=== PATIENT | female | born 1975 | race Caucasian/White ===

== ENCOUNTER 2019-07-10 13:24 | Emergency (ER) | payer OTHER, SELFPAY ==
[2019-07-10 13:47] VITALS: BP 126/85; PULSE 82; RESP 20; TEMP 36.6; O2SAT 100
--- NOTE | 2019-07-10 14:07 | ED.GENADULT ---
HPI - General Adult General Chief complaint: Unspecified Stated complaint: POS heart burn History of Present Illness HPI narrative: This a 44-year-old comes in complaining of having burning upper chest patient denies any nausea vomiting patient denies any shortness of breath or any chest pain. Patient denies any radiation or heart pain. Patient denies taking anything for her symptoms states that she is worried because the family has a history of lung cancer and notes this had something to do with lung cancer. Related Data Home Medications Medication Instructions Recorded Confirmed atorvastatin 10 mg tablet 10 mg PO DAILY 05/17/19 07/10/19 conjugated estrogens 0.625 mg/gram 0.625 mg VAGINAL DAILY 06/12/19 07/10/19 vaginal cream Allergies Allergy/AdvReac Type Severity Reaction Status Date / Time Sulfa (Sulfonamide Allergy Mild hives Verified 07/10/19 13:53 Antibiotics) Review of Systems Review of Systems: Narrative: CONSTITUTIONAL: Denies fever, chills, or sweats. EYES: Denies visual changes, redness, or discharge. ENT: Denies rhinorrhea, congestion, sore throat, or otalgia. CARDIOVASCULAR:Denies chest pain, palpitations, or edema. Burning of chest RESPIRATORY: Denies cough or dyspnea. GASTROINTESTINAL: Denies abdominal pain, nausea, vomiting, or diarrhea. GENITOURINARY: Denies dysuria or hematuria. SKIN:[Denies rash or itching. MUSCULOSKELETAL:Denies back pain, joint pain, or myalgia. NEUROLOGIC: Denies headache, numbness, or weakness. PSYCHIATRIC:Denies anxiety or depression PMFSH Social History Social History Smoking status: Former smoker Second hand tobacco smoke exposure: No Smoking end date: 05/06/98 Alcohol intake: current Comments At time as signature, I have reviewed and agree with nursing past medical, social, surgical and family history. Please see nursing chart for further information. There is no relevant family history pertinent to the presenting complaint. Exam Narrative: Exam Narrative: GENERAL:Well-appearing, well-nourished, and in no acute distress. HEAD:Normocephalic, atraumatic. EYES: PERRLA and EOMI. ENT: Nares clear, no rhinorrhea or epistaxis. Mucous membranes moist. NECK: Supple. CHEST: Clear to auscultation. No respiratory distress. Burning that goes up the chest to her throat HEART: Regular rate and rhythm. No murmur heard. Normal peripheral pulses. ABDOMEN: Soft, nontender, nondistended, normal active bowel sounds. EXTREMITIES: Normal range of motion. No edema. SKIN: Warm, dry, no rash. NEURO: No focal deficits. Alert and oriented x3. Discussed acid reflux as well as cancer in her risk and following up with her primary care provider Course Vital Signs Vital signs: Vital Signs Temperature 98 F 07/10/19 13:47 Pulse Rate 82 07/10/19 13:47 Respiratory Rate 20 07/10/19 13:47 Blood Pressure 126/85 07/10/19 13:47 Pulse Oximetry 100 07/10/19 13:47 Temperature 98 F 07/10/19 13:47 Pulse Rate 82 07/10/19 13:47 Respiratory Rate 20 07/10/19 13:47 Blood Pressure 126/85 07/10/19 13:47 Pulse Oximetry 100 07/10/19 13:47 Medical Decision Making Vital Signs Vital Signs: Vital Signs Temperature 98 F 07/10/19 13:47 Pulse Rate 82 07/10/19 13:47 Respiratory Rate 20 07/10/19 13:47 Blood Pressure 126/85 07/10/19 13:47 Pulse Oximetry 100 07/10/19 13:47 Temperature 98 F 07/10/19 13:47 Pulse Rate 82 07/10/19 13:47 Respiratory Rate 20 07/10/19 13:47 Blood Pressure 126/85 07/10/19 13:47 Pulse Oximetry 100 07/10/19 13:47 Discharge Plan Discharge Clinical Impression: Acid reflux disease Qualifiers: Esophagitis presence: esophagitis presence not specified Qualified Code(s): K21.9 - Gastro-esophageal reflux disease without esophagitis Patient Disposition: Home, Self-Care Condition: Stable Instructions: Antibiotic Form, Gastroesophageal Ref
== END 2019-07-10 14:13 | disposition home or self-care (01) ==
PROVIDERS: Emergency Provider Nurse Practitioner Family; PCP Family Medicine
DX: K21.9 Gastro-esophageal reflux disease without esophagitis (principal); Z87.891 Personal history of nicotine dependence
CPT/HCPCS: 99213; G0463

== ENCOUNTER → 2019-12-16 08:39 | Outpatient (CLI) | payer OTHER, SELFPAY ==
--- NOTE | ~2019-12-16 | MMUS_ITS ---
EXAMINATION: MM diagnostic annalisa BI w wong, US breast BI complete HISTORY: Left nipple inversion with milky discharge. TECHNIQUE: Additional 3-D tomosynthesis images of the breasts were performed and synthetic 2-D images were generated. CAD analysis was submitted and interpreted. High resolution bilateral breast ultraso und was performed. COMPARISON: Comparison to multiple prior studies sequentially, with oldest reviewed study dated 09/21. BREAST PARENCHYMAL COMPOSITION: The breasts are extremely dense, which lowers the sensitivity of mamm ography. FINDINGS: MAMMOGRAPHIC FINDINGS: There are no suspicious masses, calcifications or architectural distortion in either breast. There ar e benign breast calcifications. ULTRASOUND: Right breast ultrasound: Normal heterogeneous echotexture without focal solid or cystic mass. Left breast ultrasound: L1-2 o'clock, 4 cm from the nipple, there is an oval circumscribed hypoechoic mass measuring 8 mm wit h central echogenicity. There is mixed attenuation. No internal vascularity. At 3:00, 3 cm from the n ipple, there is an oval circumscribed hypoechoic mass measuring 8 mm with mixed posterior attenuation , no internal vascularity. At 3:00, 3 cm from from the nipple there is an oval circumscribed hypoecho ic mass measuring 4 x 5 x 2 mm without internal vascularity or posterior features. IMPRESSION: 1. Probable benign left breast masses. No evidence for malignancy in the right breast. 2. Recommend 6 month follow-up left breast ultrasound BI-RADS category 3, probably benign findings. Reviewed, dictated and finalized at location A. IMPRESSION: 1. Probable benign left breast masses. No evidence for malignancy in the right breast. 2. Recommend 6 month follow-up left breast ultrasound BI-RADS category 3, probably benign findings.
== END ==
PROVIDERS: PCP Physician Assistant Medical; Visit Provider Physician Assistant Medical
DX: N64.52 Nipple discharge (principal); N64.59 Other signs and symptoms in breast; R92.8 Other abnormal and inconclusive findings on diagnostic imaging of breast
CPT/HCPCS: 76641; 77062; 77066; G0279

== ENCOUNTER 2020-02-10 01:54 | Outpatient (CLI) | payer OTHER, SELFPAY ==
[2020-02-10 19:19] LABS: SARS-CoV-2 RNA PCR Negative
== END 2020-02-10 01:55 | disposition home or self-care (01) ==
LOC: ANHCOVIDDT 01:54
PROVIDERS: PCP Physician Assistant Medical; Visit Provider Internal Medicine Gastroenterology
DX: Z01.812 Encounter for preprocedural laboratory examination (principal); Z11.59 Encounter for screening for other viral diseases
CPT/HCPCS: 87635; C9803; U0003

== ENCOUNTER 2020-02-12 00:31 | Day surgery (SDC) | payer OTHER, SELFPAY ==
[2020-02-05 13:07] VITALS: BMI 25.4
[2020-02-12 10:38] VITALS: BP 145/98; PULSE 72; RESP 20; TEMP 36.2; O2SAT 100
[2020-02-12] MEDS: LACTATED RINGERS 1,000 ML 150 ML IV CONT (10:50)
--- NOTE | 2020-02-12 10:59 | WPDANESEPPF ---
Anes - Initial Pre Proc Eval Procedure: Operation Date: 02/12/20 11:30 Proposed Procedures p Esophagogastroduodenoscopy - Cleveland Macias MD Date/Time: 02/12/20 10:59 Surgeon: Cleveland Macias MD Pre Op Diagnosis: reflux Patient Data Age: 44 Gender: F Height: 5 ft 2.5 in Weight: 62.2 kg Last Vital Signs Temp 97.2 F L 02/12/20 10:38 Pulse 72 02/12/20 10:38 Resp 20 02/12/20 10:38 BP 145/98 H 02/12/20 10:38 Pulse Ox 100 02/12/20 10:38 Allergies Allergy/AdvReac Type Severity Reaction Status Date / Time Sulfa (Sulfonamide Allergy Mild hives Verified 02/12/20 10:34 Antibiotics) Home Medications Medication Instructions Recorded Confirmed Type conjugated estrogens 0.625 mg/gram 0.625 mg VAGINAL WEEKLY 06/12/19 02/05/20 History vaginal cream atorvastatin 10 mg tablet 10 mg PO DAILY #90 tablet 08/17/19 02/05/20 Rx amlodipine 5 mg tablet 5 mg PO DAILY #30 tablet 10/29/19 02/05/20 Rx [id number] carb-vit K 1 tablet PO DAILY 02/05/20 02/05/20 History [Women's Multivitamin] omeprazole 20 mg PO BID 02/05/20 02/05/20 History Patient hx anesthesia problems: none Family hx anesthesia problems: none PMFSH Past Medical History Medical History (Updated 02/12/20 @ 10:59 by Aidan Sloano MD) Essential (primary) hypertension GERD (gastroesophageal reflux disease) Mixed hyperlipidemia Family History Family History Father Hypertension Family history of elevated blood lipids Family history of cardiovascular disease Grandparent Hypertension Family history of lung cancer Family history of primary malignant neoplasm of liver Family history of malignant neoplasm of uterus Mother Hypertension Other Cerebrovascular accident Diabetes mellitus Family history of arthritis Family history of malignant neoplasm Family history of malignant neoplasm of bone Family history of malignant neoplasm of breast Family history of pancreatic cancer Social History Social History Smoking status: Never smoker Second hand tobacco smoke exposure: No Smoking end date: 05/06/98 Alcohol intake: current Drinks per week: 1 Substance use: never Living arrangements: with family Spiritual care concerns: No Anes - Eval Final PreProcedure Day of Procedure 02/12/20 10:59 Patient weight: normal Heart: regular rate and rhythm Lungs: clear to auscultation Airway: Mallampati scale class II Neurological: alert and oriented Last oral intake: >/= 8 hours ASA classification: II Emergent: no Anesthetic plan: proceed Anesthesia type and monitoring: general GIVS and standard monitoring Informed Consent: The patient's anesthetic plan and its attendant risks and benefits were discussed with the patient/family/POA. Questions were solicited and answers provided to the satisfaction of the patient/family/POA.
--- NOTE | 2020-02-12 11:19 | PM.HPGS ---
History of Present Illness History of Present Illness Consent: Risks, benefits, and alternatives have been discussed and questions answered. Patient agrees to proceed with procedure. Chief complaint: reflux Narrative: Tammy Wolfe is a 44 year old female with refractory reflux. She began having burning in the subxiphoid area in July. She was started on omeprazole and after few weeks tried to stop it but symptoms returned. Even now, if she skips 1 does she has symptoms later in the day. She has been taking it twice a day for the last several months. Denies dysphagia denies vomiting PMF Past Medical History Medical History (Updated 02/12/20 @ 11:20 by Cleveland Macias MD) Essential (primary) hypertension GERD (gastroesophageal reflux disease) (~07/2019) Mixed hyperlipidemia Family History Family History Father Hypertension Family history of elevated blood lipids Family history of cardiovascular disease Grandparent Hypertension Family history of lung cancer Family history of primary malignant neoplasm of liver Family history of malignant neoplasm of uterus Mother Hypertension Other Cerebrovascular accident Diabetes mellitus Family history of arthritis Family history of malignant neoplasm Family history of malignant neoplasm of bone Family history of malignant neoplasm of breast Family history of pancreatic cancer Social History Social History Smoking status: Never smoker Second hand tobacco smoke exposure: No Smoking end date: 05/06/98 Alcohol intake: current Drinks per week: 1 Substance use: never Living arrangements: with family Spiritual care concerns: No Meds Home Medications and Allergies Home Medications Medication Instructions Recorded Confirmed Type conjugated estrogens 0.625 mg/gram 0.625 mg VAGINAL WEEKLY 06/12/19 02/05/20 History vaginal cream atorvastatin 10 mg tablet 10 mg PO DAILY #90 tablet 08/17/19 02/05/20 Rx amlodipine 5 mg tablet 5 mg PO DAILY #30 tablet 10/29/19 02/05/20 Rx [id number]-ii-[id number]-FA-Ca carb-vit K 1 tablet PO DAILY 02/05/20 02/05/20 History [Women's Multivitamin] omeprazole 20 mg PO BID 02/05/20 02/05/20 History Allergies Allergy/AdvReac Type Severity Reaction Status Date / Time Sulfa (Sulfonamide Allergy Mild hives Verified 02/12/20 10:34 Antibiotics) Vital Signs Vital Signs - 24 hr 02/12/20 10:38 Temperature 36.2 C L Pulse Rate 72 Respiratory Rate 20 Blood Pressure 145/98 H Pulse Oximetry 100 Exam Const: General: alert Orientation/consciousness: patient oriented x3 Resp: Auscultation: clear to auscultation bilaterally Cardio: Rhythm: regular rhythm GI: GI Palp: Yes Soft to palpation and No Tenderness to palpation present (GI) Neuro: General: patient oriented x3 Assessment and Plan Assessment and plan (1) GERD (gastroesophageal reflux disease): Code(s): K21.9 - Gastro-esophageal reflux disease without esophagitis Status: Acute Assessment and Plan: EGD with possible biopsy or dilatation or cautery.
[2020-02-12 11:33] VITALS: BP 126/89; PULSE 68; RESP 15; O2SAT 100
[2020-02-12 11:42] VITALS: BP 131/88; PULSE 64; RESP 14; O2SAT 100
[2020-02-12 11:52] VITALS: BP 120/82; PULSE 64; RESP 13; O2SAT 100
== END 2020-02-12 12:05 | disposition home or self-care (01) ==
PROVIDERS: PCP Physician Assistant Medical; Visit Provider Internal Medicine Gastroenterology
PROC: 0DJ08ZZ Inspection of Upper Intestinal Tract, Via Natural or Artificial Opening Endoscopic (ICD-10-PCS; CPT 43235; principal; 2020-02-12 11:30)
DX: K21.9 Gastro-esophageal reflux disease without esophagitis (principal); E78.2 Mixed hyperlipidemia; I10 Essential (primary) hypertension
CPT/HCPCS: 43239; 87081; 88305; J2704; J7120

== ENCOUNTER 2020-02-21 15:02 | Emergency (ER) | payer OTHER, SELFPAY ==
--- NOTE | ~2020-02-21 | CT_ITS ---
EXAMINATION: CT thoracic lumbar wo con DATE: 02/21/2020 15:36 INDICATION: Fall. Mid and low back pain TECHNIQUE: Computed tomography (CT) of the head was performed without intravenous contrast. The mA wa s adjusted according to patient size. Iterative reconstruction technique was employed. Exam dose: 90 6.05 mGy-cm total exam DLP. COMPARISON: None FINDINGS: There is diffuse osteopenia. There is mild anterior wedge fracture deformity of T6 which is approximately 13% maximal loss of heig ht. There is mild anterior wedge compression fracture deformity of T8 with up to 25% maximal loss of heig ht of the anterior portion of vertebral body. There is severe degenerative disc disease at L5-S1. There is minimal anterolisthesis at L5-S1 due to degenerative disc disease at L5-S1. There is a transitional S1 vertebra. IMPRESSION: Mild anterior wedge compression fracture deformities of T6 and T8 Diffuse osteopenia Severe degenerative disc disease at L5-S1 Minimal anterolisthesis at L5-S1 due to degenerative apophyseal joints at L5-S1 Reviewed, dictated and finalized at [facility]. Reviewed, dictated and finalized at location A.
[2020-02-21 15:08] VITALS: BP 116/70; PULSE 102; RESP 18; TEMP 36.7; O2SAT 100
[2020-02-21] MEDS: MORPHINE SULFATE (*CRX) 4 MG/ML INJ IV PUSH (15:17)
--- NOTE | 2020-02-21 15:39 | ED.FALL ---
HPI - Fall General Chief Complaint: Fall Stated Complaint: fall History of Present Illness HPI Narrative: Patient is a 44-year-old female who presents ER with mid back pain. Patient was at the [facility]. She was standing there and in conversation when her feet went out from beneath her and she landed on the ground. She initially struck the upper area of her buttocks and felt pain shoot upwards towards her back and then radiate out. The majority of her pain is in the mid back. It is worse with twisting and bending. No numbness or tingling to the chest or abdomen. No numbness or tingling to lower extremities. Patient has normal strength in lower extremities. She did not strike her head or lose consciousness. Related Data Home Medications Medication Instructions Recorded Confirmed conjugated estrogens 0.625 mg/gram 0.625 mg VAGINAL WEEKLY 06/12/19 02/16/20 vaginal cream Women's Multivitamin 1 tablet PO DAILY 02/05/20 02/16/20 omeprazole 20 mg PO BID 02/05/20 02/16/20 Allergies Allergy/AdvReac Type Severity Reaction Status Date / Time Sulfa (Sulfonamide Allergy Mild hives Verified 02/21/20 15:15 Antibiotics) Review of Systems Cardiovascular: Cardiovascular: Denies chest pain and Denies radiating jaw, neck or arm pain Gastrointestinal: Gastrointestinal: Denies abdominal pain, Denies nausea and Denies vomiting Musculoskeletal: Musculoskeletal: Reports back pain and Denies muscle cramps Neurologic: Denies syncope, Denies focal weakness, Denies numbness and Denies weakness FOR[facility]LY [facility] Past Medical History Medical History (Updated 02/21/20 @ 17:11 by Ketnrell Lala MD) Essential (primary) hypertension GERD (gastroesophageal reflux disease) (~07/2019) Mixed hyperlipidemia Family History Family History Father Hypertension Family history of elevated blood lipids Family history of cardiovascular disease Grandparent Hypertension Family history of lung cancer Family history of primary malignant neoplasm of liver Family history of malignant neoplasm of uterus Mother Hypertension Other Cerebrovascular accident Diabetes mellitus Family history of arthritis Family history of malignant neoplasm Family history of malignant neoplasm of bone Family history of malignant neoplasm of breast Family history of pancreatic cancer Social History Social History Smoking status: Never smoker Second hand tobacco smoke exposure: No Smoking end date: 05/06/98 Alcohol intake: current Drinks per week: 1 Substance use: never Spiritual care concerns: No Exam Narrative: Exam Narrative: GENERAL: Anxious and uncomfortable-appearing, well-nourished, and in mild distress. HEAD: Normocephalic, atraumatic. CHEST: Clear to auscultation. No respiratory distress. HEART: Regular rate and rhythm. Normal peripheral pulses. ABDOMEN: Soft, nontender, nondistended. Back: Midline tenderness of the T12 area, no bruising or step-offs. No reproducible paraspinal tenderness along the T or L-spine. EXTREMITIES: Normal range of motion. No edema. Normal straight leg raise bilaterally. SKIN: Warm, dry, no rash. NEURO: No focal deficits. Alert and oriented x3. Course Course Emergency Course: Patient informed of results. She has been up and ambulatory to the bathroom. Discussed treatment plan. Needs follow-up with her PCP to discuss her osteopenia as well. Patient verbalized understanding. Discharge home. Vital Signs Vital signs: Vital Signs Temperature 98.1 F 02/21/20 15:08 Pulse Rate 102 H 02/21/20 15:08 Respiratory Rate 18 02/21/20 15:08 Blood Pressure 116/70 02/21/20 15:08 Pulse Oximetry 100 02/21/20 15:08 Temperature 98.1 F 02/21/20 15:08 Pulse Rate 102 H 02/21/20 15:08 Respiratory Rate 18 02/21/20 15:08 Blood Pressure 116/70 02/21/20 15:08 Pulse Oximetry 1
--- NOTE | 2020-02-21 16:40 | PC.NURSE ---
Pt ambulated to restroom with no difficulty.
== END 2020-02-21 17:57 | disposition home or self-care (01) ==
PROVIDERS: Emergency Provider Emergency Medicine; PCP Physician Assistant Medical
DX: S22.050A Wedge compression fracture of T5-T6 vertebra, initial encounter for closed fracture (principal); S22.060A Wedge compression fracture of T7-T8 vertebra, initial encounter for closed fracture; I10 Essential (primary) hypertension; K21.9 Gastro-esophageal reflux disease without esophagitis; E78.2 Mixed hyperlipidemia; M85.88 Other specified disorders of bone density and structure, other site; M51.37 Other intervertebral disc degeneration, lumbosacral region; V00.121A Fall from non-in-line roller-skates, initial encounter; Y93.51 Activity, roller skating (inline) and skateboarding
CPT/HCPCS: 72128; 72131; 96374; 99284; J2270

== ENCOUNTER → 2020-03-03 12:24 | Outpatient (CLI) | payer OTHER, SELFPAY ==
--- NOTE | ~2020-03-03 | DEXA_ITS ---
Bone Density Report Name: Tammy Wolfe Age: 45 Sex: Female Ethnicity: White Date of : 1975 Indication: postmenopausal; prior fracture; Referring Provider: Nataliia Landeros Study: Bone densitometry was performed. Exam Date: March 03, 2020 Accession number: [id number] Bone Density: Region BMD T-score Z-score Classification AP Spine (L1-L4) 0.603 -4.0 -3.5 Osteoporosis Femoral Neck (Left) 0.635 -1.9 -1.4 Osteopenia Total Hip (Left) 0.834 -0.9 -0.5 Normal Femoral Neck (Right) 0.669 -1.6 -1.1 Osteopenia Total Hip (Right) 0.829 -0.9 -0.6 Normal Total Hip Mean 0.832 -0.9 -0.6 Normal World Health Organization criteria for BMD impression classify patients as: Normal (T-score at or above -1.0), Osteopenia (T-score between -1.0 and -2.5), or Osteoporosis (T-score at or below -2.5). 10-year Fracture Risk: FRAX not reported because: Some T-score for Spine Total or Hip Total or Femoral Neck at or below -2.5 Prior hip or vertebral fracture Clinical Information Provided by Patient: Have had a previous hip or vertebral fracture Has had a low trauma fracture Has used the following medications: Calcium, MTV Patient maximum height was 62.5 Menopause Age: 44 No regular weight bearing exercise Onset of menses at age 11 Number of children 0 Impression: The patient has established osteoporosis, based on the Total Spine T-score and the existence of a prior fracture. The patient has risk factors, including: previous fracture. Discussion: HIGH RISK OF FRACTURE. BONE DENSITY IS UNDESIRABLY LOW AT ONE OR MORE SKELETAL SITES, CONSISTENT WITH POSTMENOPAUSAL OSTEOPOROSIS. This patient's lowest T-score, in a patient who has previously fractured, meets the World Health Organization's (WHO) criteria for severe osteoporosis. In untreated patients, the risk of osteoporotic fracture increases approximately two-fold for each 1.0 SD decrease in T-score. Low bone density is not the only risk factor for fracture; also consider factors such as patient's age, frailty or poor health, risk of falling, risk of injury, previous osteoporotic fracture, family history of osteoporosis, cigarette smoking, low body weight, etc. Not everyone with low bone mineral density has osteoporosis; osteomalacia and other metabolic bone disorders should also be considered. Patients who have osteoporosis should be evaluated for specific diseases and conditions (secondary causes) that may cause or contribute to bone loss. The [place] [employer]ocrinologists (AACE) and National Osteoporosis Foundation (NOF) recommend pharmacologic intervention for all postmenopausal women with a previous hip or vertebral fracture and a T-score in this range. The patient should follow a healthful lifestyle (good nutrition with adequate calcium and vitamin D, and appropriate
== END ==
PROVIDERS: PCP Physician Assistant Medical; Visit Provider Physician Assistant Medical
DX: S22.000A Wedge compression fracture of unspecified thoracic vertebra, initial encounter for closed fracture (principal); M81.0 Age-related osteoporosis without current pathological fracture; M16.0 Bilateral primary osteoarthritis of hip
CPT/HCPCS: 77080

== ENCOUNTER → 2020-07-06 09:33 | Outpatient (CLI) | payer OTHER, SELFPAY ==
--- NOTE | ~2020-07-06 | XR_ITS ---
EXAMINATION: XR hip BI 2V w AP pelvis EXAM DATE: 07/06/2020 09:56 INDICATION: Bilateral hip pain, intermittent for years. Fell in February. TECHNIQUE: Each hip imaged independently (separate right and also left hip) 'frog leg' and frontal p rojections for interpretation. Frontal projection pelvis. There is no prior study for comparison. FINDINGS: No radiographic evidence of hip avascular necrosis. There is mild to moderate symmetric bi lateral sacroiliac and mild bilateral hip primary osteoarthritis. Small benign right femoral head/nec k lesion with well-defined sclerotic margin. There are no acute fractures or dislocations identified. There is no subcutaneous gas. The soft tissue is unremarkable. There are no radiopaque foreign b odies. IMPRESSION: 1. Mild to moderate sacroiliac osteoarthritis. 2. Mild hip osteoarthritis. Reviewed, dictated and finalized at location A. 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
== END ==
PROVIDERS: Visit Provider Nurse Practitioner Family
DX: G89.29 Other chronic pain (principal); M25.551 Pain in right hip; M25.552 Pain in left hip; M89.49 Other hypertrophic osteoarthropathy, multiple sites
CPT/HCPCS: 73521

== ENCOUNTER → 2020-07-25 09:16 | Outpatient (CLI) | payer OTHER, SELFPAY ==
--- NOTE | ~2020-07-25 | US_ITS ---
EXAMINATION: US breast LT complete HISTORY: Six-month follow-up for probably benign left breast masses TECHNIQUE: Limited left breast ultrasound was performed. FINDINGS: There is a stable calcified mass at the 2:00 location 4 cm from the nipple corresponding to a benign finding on the prior mammogram. A stable 7 mm x 4 mm oval, circumscribed, parallel, hypoech oic mass with no posterior features or internal vascularity is present at the 3:00 location 3 cm from the nipple. IMPRESSION: Stable, probably benign left breast mass at the 3:00 location. Follow-up targeted left breast ultraso und in six months is recommended. BI-RADS category 3, probably benign findings. Reviewed, dictated and finalized at location A. IMPRESSION: Stable, probably benign left breast mass at the 3:00 location. Follow-up target ed left breast ultrasound in six months is recommended. BI-RADS category 3, probably benign findings.
== END ==
PROVIDERS: PCP Family Medicine; Visit Provider Physician Assistant Medical
DX: R92.8 Other abnormal and inconclusive findings on diagnostic imaging of breast (principal)
CPT/HCPCS: 76641

== ENCOUNTER 2021-08-25 21:15 | Emergency (ER) | payer OTHER, SELFPAY ==
[2021-08-25 21:19] VITALS: BP 150/104; PULSE 85; RESP 16; TEMP 36.3; O2SAT 100
[2021-08-25 21:41] LABS: Add Urine Microscopic? YES; Appearance Urine Cloudy (Clear); Bacteria Urine Trace /hpf; Bilirubin Urine Negative (Negative); Blood Urine 2+ (Negative); Color Urine Yellow (Yellow); Glucose Urine UA Negative (Negative); Ketones Urine Negative (Negative); Leukocyte Esterase Ur 3+ LEU/UL (Negative); Mucus Urine Rare /lpf; Nitrate Urine Negative (Negative); Protein Urine Negative (Negative); RBC Urine 21-50 /hpf (0-2); Specific Grav Ur 1.012 (1.001-1.035); Squamous Epithelial Cell Urine Rare /hpf (Few); Urobilinogen Urine Negative mg/dL (<2.0); WBC Urine 51-75 /hpf
--- NOTE | 2021-08-25 22:05 | ED.FEMALEGU ---
HPI - Female Genitourinary General Chief complaint: Urogenital-Female Stated complaint: UTI? Time Seen by Provider: 08/25/21 21:40 Source: patient Mode of arrival: ambulatory Limitations: no limitations History of Present Illness HPI Narrative: Patient is a 38-year-old female complaining of dysuria and increased urinary frequency, I have a UTI that started tonight. Patient denies any abdominal pain, back pain, nausea, vomiting, fever or chills. Related Data Home Medications Medication Instructions Recorded Confirmed Women's Multivitamin 1 tablet PO DAILY 02/05/20 08/10/21 omeprazole 20 mg capsule,delayed 20 mg PO BID 05/11/21 08/10/21 release teriparatide 20 mcg/dose (600 20 mcg SUBCUT DAILY 05/11/21 08/10/21 mcg/2.4 mL) subcutaneous pen injector Allergies Allergy/AdvReac Type Severity Reaction Status Date / Time Sulfa (Sulfonamide Allergy Mild hives Verified 08/25/21 21:28 Antibiotics) Review of Systems Review of Systems: Per HPI All systems reviewed & are unremarkable except as noted in HPI and below PMFSH Past Medical History Medical History Acute pain of both hips BMI 24.0-24.9, adult BMI 25.0-25.9,adult BMI 26.0-26.9,adult Essential (primary) hypertension GERD (gastroesophageal reflux disease) (~07/2019) Mixed hyperlipidemia Family History Family History Father Hypertension Family history of elevated blood lipids Family history of cardiovascular disease Heart disease Acute myocardial infarction H/O heart bypass surgery Grandparent Hypertension Family history of lung cancer Family history of primary malignant neoplasm of liver Family history of malignant neoplasm of uterus Mother Hypertension Kidney stones Sibling No problems noted. Other Cerebrovascular accident Diabetes mellitus Family history of arthritis Family history of malignant neoplasm Family history of malignant neoplasm of bone Family history of malignant neoplasm of breast Family history of pancreatic cancer Social History Social History Social History: recently diagnosed with Osteopenia. 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 [employer] Gender identity (if verbalized by the patient): Female Spiritual care concerns: No Agree to blood products: Yes Exam Const: General: cooperative, healthy appearing, comfortable, no acute distress, well developed, alert and awake; No confusion Orientation/consciousness: oriented to person, oriented to place, oriented to time, patient oriented x3 and No confusion Limitations: no limitations HENMT: Head: normal to inspection, normocephalic and atraumatic Ears: hearing grossly normal bilaterally, TM normal on the right and TM normal on the left General nose exam: Normal external nose present, Normal nares present and No nasal discharge present Face and sinus: normal facial exam Mouth: Yes Normal oral and palatal mucosa present, Yes lip normal, Yes tongue normal and Yes oropharynx normal Throat: posterior oropharynx normal, tonsils normal and uvula midline Eyes: General: appearance normal, both eyes and all related structures Pupils: Equal, round and reactive pupils present EOM: EOMs intact bilaterally Neck: Neck: normal visual inspection, full ROM, no lymphadenopathy and no meningeal signs Chest: Chest palpation & inspection: normal inspection of the chest Resp: Effort & Inspection: normal respiratory effort, able to speak in complete sentences, no respiratory distress and not tachypneic Auscultation: clear to auscultation bilaterally, no crackles, no rales, no rhonchi and no wheezes Cardio: Rate: regular rate Rhythm
== END 2021-08-25 22:19 | disposition home or self-care (01) ==
PROVIDERS: Nurse Practitioner Family; Emergency Provider Emergency Medicine; PCP Family Medicine
DX: N39.0 Urinary tract infection, site not specified (principal); I10 Essential (primary) hypertension; E78.2 Mixed hyperlipidemia; K21.9 Gastro-esophageal reflux disease without esophagitis; M85.80 Other specified disorders of bone density and structure, unspecified site
CPT/HCPCS: 81001; 87077; 87086; 87088; 87186; 99283

== ENCOUNTER 2021-10-11 22:44 | Emergency (ER) | payer OTHER, SELFPAY ==
[2021-10-11 22:49] VITALS: BP 155/97; PULSE 82; RESP 16; TEMP 36.6; O2SAT 99
--- NOTE | 2021-10-11 23:06 | ED.FEMALEGU ---
HPI - Female Genitourinary General Chief complaint: Urogenital-Female Stated complaint: dysuria Time Seen by Provider: 10/11/21 22:53 Source: patient Mode of arrival: ambulatory Limitations: no limitations History of Present Illness HPI Narrative: This is a 46-year-old female that presents to the emergency department for dysuria. Noted today. No associated symptoms. Denies fever, vomiting, flank pain, or hematuria. Related Data Home Medications Medication Instructions Recorded Confirmed womckcfw-gax-vkqf-FA-Ca carb-vit K 1 tablet PO DAILY 02/05/20 08/29/21 18 mg iron-400 mcg-500 mg tablet (Women's Multivitamin) omeprazole 20 mg capsule,delayed 20 mg PO BID 05/11/21 08/29/21 release teriparatide 20 mcg/dose (600 20 mcg subcut DAILY 05/11/21 08/29/21 mcg/2.4 mL) subcutaneous pen injector (Forteo) conjugated estrogens 0.625 mg/gram 0.625 mg vaginal WEEKLY 08/29/21 08/29/21 vaginal cream (Premarin) Allergies Allergy/AdvReac Type Severity Reaction Status Date / Time Sulfa (Sulfonamide Allergy Mild hives Verified 08/29/21 08:56 Antibiotics) Review of Systems Review of Systems: CONSTITUTIONAL: Denies fever GASTROINTESTINAL: Denies abdominal pain, nausea, vomiting GENITOURINARY: Reports dysuria. Denies hematuria. All systems reviewed & are unremarkable except as noted in HPI and below PMFSH Past Medical History Medical History Acute pain of both hips BMI 24.0-24.9, adult BMI 25.0-25.9,adult BMI 26.0-26.9,adult Essential (primary) hypertension GERD (gastroesophageal reflux disease) (~07/2019) Mixed hyperlipidemia Family History Family History Father Hypertension Family history of elevated blood lipids Family history of cardiovascular disease Heart disease Acute myocardial infarction H/O heart bypass surgery Grandparent Hypertension Family history of lung cancer Family history of primary malignant neoplasm of liver Family history of malignant neoplasm of uterus Mother Hypertension Kidney stones Sibling No problems noted. Other Cerebrovascular accident Diabetes mellitus Family history of arthritis Family history of malignant neoplasm Family history of malignant neoplasm of bone Family history of malignant neoplasm of breast Family history of pancreatic cancer Social History Social History Social History: recently diagnosed with Osteopenia. 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 HEAD: Normocephalic, atraumatic. EYES: EOMI. CHEST: Clear to auscultation. No respiratory distress. No wheezes rales or rhonchi HEART: Regular rate and rhythm. No murmur heard. Normal peripheral pulses. ABDOMEN: Soft, nontender, nondistended, normal active bowel sounds. No CVA tenderness EXTREMITIES: Normal range of motion. No edema. SKIN: Warm, dry, no rash. NEURO: No focal deficits. Alert and oriented x3. PSYCH: Normal mood and affect Course Vital Signs Vital signs: Vital Signs Temperature 97.9 F 10/11/21 22:49 Pulse Rate 82 10/11/21 22:49 Respiratory Rate 16 10/11/21 22:49 Blood Pressure 155/97 H 10/11/21 22:49 Pulse Oximetry 99 10/11/21 22:49 Oxygen Delivery Room Air 10/11/21 22:49 Temperature 97.9 F 10/11/21 22:49 Pulse Rate 82 10/11/21 22:49 Respiratory Rate 16 10/11/21 22:49 Blood Pressure 155/97 H 10/11/21 22:49 Pulse Oximetry 99 10/11/21 22:49 Oxygen Delive
[2021-10-11 23:25] LABS: Appearance Urine Clear (Clear); Bilirubin Urine Negative (Negative); Color Urine Yellow (Yellow); Glucose Urine UA Negative (Negative); Ketones Urine Negative (Negative); Leukocyte Esterase Ur 3+ LEU/UL (Negative); Nitrate Urine Negative (Negative); Protein Urine Negative (Negative); Urobilinogen Urine 0.2 mg/dL (<2.0)
[2021-10-11 23:39] LABS: Mucus Urine Rare /lpf; RBC Urine 0-2 /hpf (0-2); Squamous Epithelial Cell Urine Rare /hpf (Few); WBC Urine 21-30 /hpf
[2021-10-11 23:40] LABS: Add Urine Microscopic? YES; Blood Urine Trace (Negative)
[2021-10-11] MEDS: NITROFURANTOIN MONOHYD MACROCR 100 MG CAP PO (23:51)
== END 2021-10-11 23:54 | disposition home or self-care (01) ==
PROVIDERS: Physician Assistant; Emergency Provider Emergency Medicine; PCP Family Medicine
DX: N39.0 Urinary tract infection, site not specified (principal); I10 Essential (primary) hypertension; E78.2 Mixed hyperlipidemia; K21.9 Gastro-esophageal reflux disease without esophagitis
CPT/HCPCS: 81001; 87077; 87086; 87186; 99283; A9270

== ENCOUNTER → 2022-10-30 07:38 | Outpatient (CLI) | payer OTHER, SELFPAY ==
--- NOTE | ~2022-10-30 | XR_ITS ---
EXAMINATION: XR clavicle LT INDICATION: Left shoulder pain TECHNIQUE: Two views of the left clavicle are obtained. COMPARISON: None available FINDINGS: No fracture, dislocation, or subluxation. The bones, soft tissues, and joint spaces are nor mal. IMPRESSION: 1. No acute osseous abnormality. Reviewed, dictated and finalized at location D.
--- NOTE | ~2022-10-30 | XR_ITS ---
Left Shoulder Technique: AP and axillary views were obtained. Clinical History: Pain Findings: No fracture or dislocation is seen. Osseous alignment is anatomic. The glenohumeral and acr omioclavicular joint spaces are preserved. Soft tissues are unremarkable. Impression: Unremarkable left shoulder radiographs. Reviewed, dictated and finalized at [facility]. Impression: Unremarkable left shoulder radiographs.
== END ==
PROVIDERS: PCP Family Medicine; Visit Provider Nurse Practitioner Family
DX: M25.512 Pain in left shoulder (principal); M89.8X1 Other specified disorders of bone, shoulder
CPT/HCPCS: 73000; 73030

== ENCOUNTER → 2022-12-28 15:17 | Outpatient (CLI) | payer OTHER, SELFPAY ==
--- NOTE | ~2022-12-28 | MR_ITS ---
EXAMINATION: MR shoulder LT wo con DATE: 12/28/2022 16:01 INDICATION: Left shoulder pain TECHNIQUE: Magnetic resonance imaging (MRI) of the left shoulder was performed without intravenous co ntrast. Sequences included axial PD-weighted FS FSE, coronal oblique PD-weighted FS FSE, coronal obli que T2-weighted FS FSE, sagittal PD-weighted FS FSE, and sagittal T1-weighted SE. COMPARISON: None. FINDINGS: Coracoacromial arch: The acromion undersurface is curved in morphology (type II). The coracoacromial ligament is normal. M inimal acromioclavicular osteoarthritis. Rotator cuff: The supraspinatus, infraspinatus and teres minor tendons are normal. Mild subscapularis tendinopathy without discrete tear. Normal rotator cuff muscle bulk and signal. Biceps tendon, glenoid labrum and glenohumeral cartilage: Long head of the biceps tendon is normal. Glenoid labrum is normal with normal sulcus at the anterosu perior glenoid. Glenohumeral cartilage is normal. Fluid: Physiologic amount of fluid in the glenohumeral joint and biceps tendon sheath. No loose osteochondr al bodies. No abnormal fluid in the subacromial/subdeltoid bursa to suggest bursitis. Bones: Normal marrow signal with no edema, fracture or abnormal marrow replacing process. IMPRESSION: 1. Mild subscapularis tendinopathy without tear. Reviewed, dictated and finalized at location A.
== END ==
PROVIDERS: PCP Family Medicine; Visit Provider Nurse Practitioner Family
DX: M89.8X1 Other specified disorders of bone, shoulder (principal); M25.512 Pain in left shoulder; M77.8 Other enthesopathies, not elsewhere classified
CPT/HCPCS: 73221

== ENCOUNTER 2023-09-07 09:25 | Emergency (ER) | payer OTHER, SELFPAY ==
--- NOTE | 2023-09-07 09:37 | ED.URI ---
HPI - URI/Sore Throat General Chief Complaint: Upper Respiratory Infection Stated Complaint: SORE THROAT/FEVER Time Seen by Provider: 09/07/23 09:42 Source: patient and RN notes reviewed Mode of arrival: ambulatory Limitations: no limitations History of Present Illness HPI Narrative: 48-year-old female presents with concern for sore throat, cough, low-grade temperature for 3 days. She reports she has been taking Mucinex and throat lozenges. She denies headache, stomachache, rash. Reports mild nasal congestion and rhinorrhea MD elicited complaint: sore throat Related Data Home Medications Medication Instructions Recorded Confirmed usmaxxfw-wgq-fdxk-FA-Ca carb-vit K 1 tablet PO DAILY 02/05/20 09/07/23 18 mg iron-400 mcg-500 mg tablet (Women's Multivitamin) teriparatide 20 mcg/dose (600 20 mcg subcut DAILY 05/11/21 09/07/23 mcg/2.4 mL) subcutaneous pen injector (Forteo) conjugated estrogens 0.625 mg/gram 0.625 mg vaginal WEEKLY 08/29/21 09/07/23 vaginal cream (Premarin) Allergies Allergy/AdvReac Type Severity Reaction Status Date / Time Sulfa (Sulfonamide Allergy Mild hives Verified 09/07/23 09:30 Antibiotics) Review of Systems Review of Systems: CONSTITUTIONAL: Denies malaise, chills, sweats. Reports low-grade fever. EYES: Denies visual changes, redness, or discharge. ENT: Reports rhinorrhea, congestion, and sore throat. CARDIOVASCULAR: Denies chest pain, palpitations, or edema. RESPIRATORY: Reports cough. Denies dyspnea. GASTROINTESTINAL: Denies abdominal pain, nausea, vomiting, diarrhea SKIN: Denies rash or itching. MUSCULOSKELETAL: Denies myalgia. NEUROLOGIC: Denies headache. All systems reviewed & are unremarkable except as noted in HPI and below [facility] Past Medical History Medical History Acute pain of both hips BMI 24.0-24.9, adult BMI 25.0-25.9,adult BMI 26.0-26.9,adult BMI 27.0-27.9,adult BMI 28.0-28.9,adult Essential (primary) hypertension GERD (gastroesophageal reflux disease) (~07/2019) Mixed hyperlipidemia Surgical History Surgical History History of lumpectomy History of myomectomy Hx of laparoscopy Family History Family History Father Hypertension Family history of elevated blood lipids Family history of cardiovascular disease Heart disease Acute myocardial infarction H/O heart bypass surgery Grandparent Hypertension Family history of lung cancer Family history of primary malignant neoplasm of liver Family history of malignant neoplasm of uterus Mother Hypertension Kidney stones Sibling Tobacco abuse Hypertension Other Cerebrovascular accident Diabetes mellitus Family history of arthritis Family history of malignant neoplasm Family history of malignant neoplasm of bone Family history of malignant neoplasm of breast Family history of pancreatic cancer Social History Social History (Updated 06/21/23 @ 09:49 by NIKKY Garcia) Social History: recently diagnosed with Osteopenia. 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
[2023-09-07 09:38] VITALS: BP 127/96; PULSE 93; RESP 16; TEMP 37; O2SAT 99
== END 2023-09-07 09:56 | disposition home or self-care (01) ==
PROVIDERS: Emergency Provider Nurse Practitioner; PCP Family Medicine
DX: J06.9 Acute upper respiratory infection, unspecified (principal); I10 Essential (primary) hypertension; K21.9 Gastro-esophageal reflux disease without esophagitis; E78.2 Mixed hyperlipidemia
CPT/HCPCS: 87081; 87880; 99213; G0463

== ENCOUNTER 2023-10-23 07:54 | Outpatient (CLI) | payer OTHER, SELFPAY ==
--- NOTE | ~2023-10-23 | MMUS_ITS ---
EXAMINATION: MM diagnostic annalisa BI w wong, US breast BI complete HISTORY: Palpable left breast abnormality. TECHNIQUE: Additional 3-D tomosynthesis images of the breasts were performed and synthetic 2-D images were generated. CAD analysis was submitted and interpreted. High resolution bilateral complete breas t ultrasound was performed. COMPARISON: Comparison to multiple prior studies sequentially, with oldest reviewed study dated 06/2015. BREAST PARENCHYMAL COMPOSITION: Dense: The breasts are extremely dense, which lowers the sensitivity of mammography. FINDINGS: MAMMOGRAPHIC FINDINGS: The breasts are stable. There are coarse calcifications of the left breast. No discrete masses, archi tectural distortion or suspicious calcifications. ULTRASOUND: Complete bilateral US of all 4 quadrants of the breasts and retroareolar region was reviewed. Right breast: Normal heterogeneous echotexture without focal solid or cystic mass. Left breast: At 2:00, 4 cm from the nipple there is an irregular hypoechoic mass with posterior shado wing and coarse calcifications measuring up to 1 cm. No internal vascularity. At 3:00, 3 cm from the nipple there is a hypoechoic oval slightly irregular shaped 8mm mass without internal vascularity. Th ere is posterior shadowing. IMPRESSION: 1. Abnormal left breast masses located at 2:00, 4 cm from the nipple and 3:00, 3 cm from the nipple. 2. Ultrasound-guided left breast biopsies recommended. BI-RADS category 4, suspicious findings. Reviewed, dictated and finalized at location B. IMPRESSION: 1. Abnormal left breast masses located at 2:00, 4 cm from the nipple and 3:00, 3 cm from the nipple. 2. Ultrasound-guided left breast biopsies recommended. BI-RADS category 4, suspicious findings.
== END 2023-10-23 07:55 ==
LOC: MICIMG 07:55
PROVIDERS: Visit Provider Nurse Practitioner Family
DX: R92.8 Other abnormal and inconclusive findings on diagnostic imaging of breast (principal); N63.20 Unspecified lump in the left breast, unspecified quadrant
CPT/HCPCS: 76641; 77062; 77066; G0279

== ENCOUNTER 2023-12-16 07:58 | Outpatient (CLI) | payer OTHER, SELFPAY ==
--- NOTE | ~2023-12-16 | MMUS_ITS ---
MM post biopsy diagnostic LT, US breast biopsy LT w image EXAMINATION: US GUIDED NEEDLE BIOPSY WITH VACUUM ASSISTANCE DATE: 12/16/2023 10:00 CDT INDICATION: Left breast mass seen on previous examination Ultrasound-guided core biopsy is requested to evaluate for malignancy. BREAST PARENCHYMAL COMPOSITION: Dense: The breasts are heterogeneously dense, which may obscure small masses TECHNIQUE AND FINDINGS: The risks and potential benefits of the procedure were discussed with the patient, and written inform ed consent was obtained. After sterile preparation of the left breast, 1% lidocaine was utilized for local anesthesia. 1% lidocaine with epinephrine was used for deep anesthesia. The mass identified at 2:00, 4 cm from the nipple on prior examination demonstrates coarse central ca lcification. This corresponds to a benign calcified mass in the left breast, likely representing fat necrosis from previous benign biopsy. Six-month follow-up examination of this mass recommended. A 10G vacuum-assisted biopsy gun needle was advanced through to the outer edge of the region of interest f rom a lateral approach utilizing sonographic guidance. A total of 5 tissue core samples were obtaine d through the lesion. An Inrad tissue marker clip was then placed at the biopsy site. Hemostasis was achieved. The patient tolerated procedure well and there was no evidence of immediate complication. The patien t was given verbal instructions partly is from the department. Left breast mammograms to document ti ssue marker clip placement. The tissue samples were submitted to surgical pathology for histologic an alysis. IMPRESSION: 1. Successful ultrasound-guided vacuum-assisted biopsy of left breast mass with post procedure mammo gram for marker placement. Please refer to pathology report for histologic analysis. 2: Breast mass, 4 cm from the nipple is likely benign fat necrosis secondary to prior biopsy. Six-mon follow-up Limited left breast ultrasound recommended. Reviewed, dictated and finalized at location B. IMPRESSION: 1. Successful ultrasound-guided vacuum-assisted biopsy of left breast mass wit h post procedure mammogram for marker placement. Please refer to pathology repo rt for histologic analysis. 2: Breast mass, 4 cm from the nipple is likely benign fat necrosis secondary to prior biopsy. Six-month follow-up Limited left breast ultrasound recommended.
== END 2023-12-16 07:59 | disposition home or self-care (01) ==
PROVIDERS: PCP Family Medicine; Visit Provider Nurse Practitioner Family
DX: D24.2 Benign neoplasm of left breast (principal); R92.8 Other abnormal and inconclusive findings on diagnostic imaging of breast
CPT/HCPCS: 19083; 77065; 88305; A4648

== ENCOUNTER 2024-03-20 04:42 | Day surgery (SDC) | payer OTHER, SELFPAY ==
[2024-03-10 16:16] VITALS: BMI 30.2
[2024-03-20 08:48] VITALS: BP 188/85; PULSE 79; RESP 18; TEMP 36.1; O2SAT 100
[2024-03-20] MEDS: LACTATED RINGERS 1,000 ML 150 ML IV CONT (09:00)
--- NOTE | 2024-03-20 09:25 | WPDANESEPPF ---
Anes - Initial Pre Proc Eval Procedure: Operation Date: 03/20/24 10:00 Proposed Procedures p Screening Colonoscopy - Xavi Lo MD Date/Time: 03/20/24 09:25 Surgeon: Xavi Lo MD Pre Op Diagnosis: screening colon Patient Data Age: 49 Gender: F Height: 1.57 m Weight: 72.6 kg Last Vital Signs Temp 97 F L 03/20/24 08:48 Pulse 79 03/20/24 08:48 Resp 18 03/20/24 08:48 BP 188/85 H 03/20/24 08:48 Pulse Ox 100 03/20/24 08:48 O2 Del Method Room Air 03/20/24 08:48 Allergies Allergy/AdvReac Type Severity Reaction Status Date / Time Sulfa (Sulfonamide Allergy Mild hives Verified 03/20/24 08:46 Antibiotics) Home Medications Medication Instructions Recorded Confirmed Type iqqyhjda-wlw-qzcg-FA-Ca carb-vit K 1 tablet PO DAILY 02/05/20 03/20/24 History 18 mg iron-400 mcg-500 mg tablet (Women's Multivitamin) amlodipine 5 mg tablet See Rx Instructions .Route 08/28/23 03/20/24 Rx .COMPLEX #90 tabs atorvastatin 10 mg tablet See Rx Instructions .Route 02/28/24 03/20/24 Rx .COMPLEX #90 tabs epinephrine 0.3 mg/0.3 mL 0.3 mg IM ONCE PRN Allergic 03/20/24 03/20/24 History injection, auto-injector (EpiPen Reaction 2-Terry) Patient hx anesthesia problems: none Family hx anesthesia problems: none Results Review: All pre-operative results and documents have been reviewed as part of the pre-operative evaluation. [facility] Past Medical History Medical History Abdominal discomfort Acute hemorrhoid Acute pain of both hips Burning with urination Compression fracture of body of thoracic vertebra Essential (primary) hypertension Excessive cerumen in ear canal Frequent headaches GERD (gastroesophageal reflux disease) (~07/2019) Mixed hyperlipidemia Normal urinalysis Osteopenia determined by x-ray Pain of left clavicle Sensation of plugged ear on left side Skin lesion Snoring Suprapubic pain UTI (urinary tract infection) Surgical History Surgical History History of lumpectomy History of myomectomy Hx of laparoscopy Family History Family History (Reviewed 03/20/24 @ 09: by Liu Adams DO) Father Hypertension Family history of elevated blood lipids Family history of cardiovascular disease Heart disease Acute myocardial infarction H/O heart bypass surgery Grandparent Hypertension Family history of lung cancer Family history of primary malignant neoplasm of liver Family history of malignant neoplasm of uterus Mother Hypertension Kidney stones Sibling Tobacco abuse Hypertension Other Cerebrovascular accident Diabetes mellitus Family history of arthritis Family history of malignant neoplasm Family history of malignant neoplasm of bone Family history of malignant neoplasm of breast Family history of pancreatic cancer Social History Social History (Reviewed 03/20/24 @ 09: by Liu Adams DO) Social History: recently diagnosed with Osteopenia. 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 HTN, hyperlipidemia, recent cardiology visit reviewed w nml findings. Informed Consent: The patient's anesthetic plan and its attendant risks and benefits were discussed with the patient/family/POA. Questions were solicited and answers provided to the satisfaction of the patient/family/POA.
--- NOTE | 2024-03-20 09:26 | PM.HPGS ---
History of Present Illness History of Present Illness Consent: Risks, benefits, and alternatives have been discussed and questions answered. Patient agrees to proceed with procedure. Chief complaint: screening colon Narrative: Tammy Wolfe is a 49 year old female here for first screening colonoscopy Review of Systems Review of Systems: All systems reviewed & are unremarkable except as noted in HPI and below PMFSH Past Medical History Medical History Abdominal discomfort Acute hemorrhoid Acute pain of both hips Burning with urination Compression fracture of body of thoracic vertebra Essential (primary) hypertension Excessive cerumen in ear canal Frequent headaches GERD (gastroesophageal reflux disease) (~07/2019) Mixed hyperlipidemia Normal urinalysis Osteopenia determined by x-ray Pain of left clavicle Sensation of plugged ear on left side Skin lesion Snoring Suprapubic pain UTI (urinary tract infection) Surgical History Surgical History History of lumpectomy History of myomectomy Hx of laparoscopy Family History Family History Father Hypertension Family history of elevated blood lipids Family history of cardiovascular disease Heart disease Acute myocardial infarction H/O heart bypass surgery Grandparent Hypertension Family history of lung cancer Family history of primary malignant neoplasm of liver Family history of malignant neoplasm of uterus Mother Hypertension Kidney stones Sibling Tobacco abuse Hypertension Other Cerebrovascular accident Diabetes mellitus Family history of arthritis Family history of malignant neoplasm Family history of malignant neoplasm of bone Family history of malignant neoplasm of breast Family history of pancreatic cancer Social History Social History Social History: recently diagnosed with Osteopenia. 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 Gender identity (if verbalized by the patient): Female Spiritual care concerns: No Agree to blood products: Yes Meds Home Medications and Allergies Home Medications Medication Instructions Recorded Confirmed Type julrpzuy-epx-kneh-[id number]-Ca carb-vit K 1 tablet PO DAILY 02/05/20 03/20/24 History 18 mg iron-400 mcg-500 mg tablet (Women's Multivitamin) amlodipine 5 mg tablet See Rx Instructions .Route 08/28/23 03/20/24 Rx .COMPLEX #90 tabs atorvastatin 10 mg tablet See Rx Instructions .Route 02/28/24 03/20/24 Rx .COMPLEX #90 tabs epinephrine 0.3 mg/0.3 mL 0.3 mg IM ONCE PRN Allergic 03/20/24 03/20/24 History injection, auto-injector (EpiPen Reaction 2-Terry) Allergies Allergy/AdvReac Type Severity Reaction Status Date / Time Sulfa (Sulfonamide Allergy Mild hives Verified 03/20/24 08:46 Antibiotics) Vital Signs Vital Signs - 24 hr 03/20/24 08:48 Temperature 97 F L Pulse Rate 79 Respiratory Rate 18 Blood Pressure 188/85 H Pulse Oximetry 100 Oxygen Delivery Room Air Exam Const: General: comfortable and no acute distress HENMT: Face/Nose/Sinus: Normal nares present Eyes: General: appearance normal, both eyes and all related structures Neck: Neck: no JVD Resp: Auscultation: clear to auscultation bilaterally Cardio: Rate: regular rate Rhythm: regular rhythm GI: Inspection: non-distended GI Palp: Yes Soft to palpation Skin: General skin exam: normal color Neuro: General: gait normal Speech: normal speech Extrem: General: normal to inspection Psych: Mental Status: mental status grossly normal Assessment and Plan Assessment and plan (1) Screening for colon cancer: Code(s): Z12.11 - Encounter for screening for malignant neoplasm of colon Status: Acute Assessment and Plan: colonoscopy
[2024-03-20 09:48] VITALS: BP 102/67; PULSE 66; RESP 16; O2SAT 96
[2024-03-20 09:58] VITALS: BP 111/78; PULSE 65; RESP 15; O2SAT 98
[2024-03-20 10:08] VITALS: BP 112/86; PULSE 63; RESP 19; O2SAT 100
== END 2024-03-20 10:21 | disposition home or self-care (01) ==
PROVIDERS: PCP Family Medicine; Referring Provider Physician Assistant Medical; Visit Provider Internal Medicine Gastroenterology
PROC: 0DJD8ZZ Inspection of Lower Intestinal Tract, Via Natural or Artificial Opening Endoscopic (ICD-10-PCS; CPT 45378; principal; 2024-03-20 10:00)
DX: Z12.11 Encounter for screening for malignant neoplasm of colon (principal); K63.5 Polyp of colon; K64.8 Other hemorrhoids; I10 Essential (primary) hypertension; E78.5 Hyperlipidemia, unspecified
CPT/HCPCS: 45385; 88305; J2003; J2704; J7120

== ENCOUNTER 2024-06-25 07:46 | Outpatient (CLI) | payer OTHER, SELFPAY ==
--- NOTE | ~2024-06-25 | MMUS_ITS ---
EXAMINATION: MM diagnostic annalisa BI w wong, US breast LT limited HISTORY: Left breast lump. TECHNIQUE: Additional 3-D tomosynthesis images of the breasts were performed and synthetic 2-D images were generated. CAD analysis was submitted and interpreted. High resolution Limited left breast ultr asound was performed. COMPARISON: Comparison to multiple prior studies sequentially, with oldest reviewed study dated 06/2015. BREAST PARENCHYMAL COMPOSITION: Dense: The breasts are heterogeneously dense, which may obscure small masses FINDINGS: MAMMOGRAPHIC FINDINGS: The breasts are stable. No new masses, calcifications or architectural distortion in either breast to suggest malignancy. ULTRASOUND: Limited left breast ultrasound: At 2:00, 4 cm from the nipple there is an oval parallel oriented hypo echoic mass containing internal calcifications and mixed posterior attenuation. There is parallel lamine entation. Mass measures 9 x 9 x 5 mm compared with 10 x 7 x 5 mm on prior examination dated 10/23/2023 . This was previously biopsy-proven benign fibroadenoma. IMPRESSION: 1. Stable left breast mass at 2:00, 4 cm from the nipple, previously biopsy-proven benign fibroadenom a. No evidence for malignancy in either breast. 2. Routine yearly screening mammogram and regular clinical breast examination are recommended. BI-RADS Category 2: Benign finding(s). Reviewed, dictated and finalized at location B. TRICAL INSTALLATION SUPERVISOR IMPRESSION: 1. Stable left breast mass at 2:00, 4 cm from the nipple, previously biopsy-pro michelle benign fibroadenoma. No evidence for malignancy in either breast. 2. Routine yearly screening mammogram and regular clinical breast examination a re recommended. BI-RADS Category 2: Benign finding(s).
== END 2024-06-25 07:47 | disposition home or self-care (01) ==
LOC: MICIMG 07:46
PROVIDERS: PCP Family Medicine; Visit Provider Nurse Practitioner Family
DX: N63.21 Unspecified lump in the left breast, upper outer quadrant (principal)
CPT/HCPCS: 76642; 77062; 77066; G0279

== ENCOUNTER 2024-06-25 09:05 | Outpatient (CLI) | payer OTHER, SELFPAY ==
--- NOTE | ~2024-06-25 | XR_ITS ---
EXAMINATION: XR shoulder RT min 2V DATE: 06/25/2024 09:30 INDICATION: Lateral right elbow pain extending proximally of the right humerus. Anesthesia of skin. TECHNIQUE: AP internally and externally rotated, AP oblique externally rotated and axillary views of the right shoulder were obtained. COMPARISON: None FINDINGS: Normal alignment. No fracture. Glenohumeral joint is normal. Acromioclavicular joint is normal. Soft tissues are unremarkable. Visualized portion of the lungs are clear. IMPRESSION: Negative right shoulder radiographs. Reviewed, dictated and finalized at location A. DESIGNER
--- NOTE | ~2024-06-25 | XR_ITS ---
EXAMINATION: XR elbow RT 2V DATE: 06/25/2024 09:30 INDICATION: Lateral right elbow pain TECHNIQUE: Anteroposterior, two oblique and lateral views of the right elbow were obtained. COMPARISON: None. FINDINGS: Alignment is normal. No fracture or joint effusion. Joint spaces are normal. Soft tissues are unremar kable. IMPRESSION: 1. Negative right elbow radiographs. Reviewed, dictated and finalized at location A. MATIC BRINE MIXER OPERATOR
== END 2024-06-25 09:06 | disposition home or self-care (01) ==
LOC: MICIMG 09:06
PROVIDERS: PCP Family Medicine; Visit Provider Nurse Practitioner Adult Health
DX: R20.0 Anesthesia of skin (principal); R20.2 Paresthesia of skin; M25.521 Pain in right elbow
CPT/HCPCS: 73030; 73070

== ENCOUNTER 2024-12-09 12:43 | Emergency (ER) | payer OTHER, SELFPAY ==
--- NOTE | ~2024-12-09 | XR_ITS ---
EXAMINATION: XR chest 2V DATE: 12/09/2024 13:06 INDICATION: Chest pain and tightness TECHNIQUE: PA and lateral views of the chest were obtained. COMPARISON: Chest radiograph dated 06/25/2017 FINDINGS: The lungs remain clear with no focal airspace opacities, pulmonary edema, pleural effusion or pneumot horax. The cardiomediastinal silhouette is normal. Visualized bones and soft tissues are unremarkable . IMPRESSION: 1. No acute cardiopulmonary disease. Reviewed, dictated and finalized at location A.
--- NOTE | 2024-12-09 12:45 | ECG_ITS ---
Test Date: 2024-12-09 12:47:50 Measurements Intervals [place] Rate: 79 P: 56 MI: 167 QRS: 63 QRSD: 85 T: 62 QT: 356 QTc: 409 Interpretive Statements SINUS RHYTHM POSSIBLE LEFT ATRIAL ENLARGEMENT BORDERLINE ST ABNORMALITY- LATERAL LEADS BASELINE ARTIFACT- V4 BORDERLINE ECG No previous ECG available for comparison Electronically Signed On 12-09-2024 12:58:48 CDT by Torin Farley D.O.
--- NOTE | 2024-12-09 12:47 | ED_ITS ---
HPI - Chest Pain General Chief Complaint: Chest Pain <Aristeo Felton APRN - Last Filed: 12/09/24 12:55> Stated Complaint: chest pain <Aristeo Felton APRN - Last Filed: 12/09/24 12:55> Time Seen by Provider: 12/09/24 14:30 <Aristeo Felton APRN - Last Filed: 12/09/24 12:55> Focused HPI: 49-year-old female presents to the ER complaining of chest pain that started 30 minutes ago. Patient said is intermittent comes and goes and she feels that the top of her chest regular throat. Patient describes as a tightness sensation only last a couple minutes and resolved. Patient denies any significant cardiac history but states she has had history of palpitations and sees a nut grader annually for it. Patient denies any shortness of breath, nausea, vomiting, jaw pain, left arm pain, chest pressure, chest pain with exertion however have symptoms. Patient currently does not have any chest pain. GENERAL: Well-appearing, well-nourished, and in no acute distress. HEAD: Normocephalic, atraumatic. CHEST: Clear to auscultation. ?No respiratory distress. HEART: Regular rate and rhythm.? NEURO: ?Alert and oriented x3. Patient screened in triage and initial orders placed.? ?Additional care and disposition to be based upon?diagnostic testing and treatment. <Aristeo Felton APRN - Last Filed: 12/09/24 12:55> Related Data Home Medications: Home Medications ?Medication ?Instructions ?Recorded ?Confirmed ?Last Taken ?Type focjmwei-thl-jfbb-FA-Ca carb-vit K 1 tablet PO DAILY 02/05/20 07/09/24 03/19/24 History 18 mg iron-400 mcg-500 mg tablet (Women's Multivitamin) epinephrine 0.3 mg/0.3 mL 0.3 mg IM ONCE PRN Allergic 03/20/24 07/09/24 Unknown History injection, auto-injector (EpiPen Reaction 2-Terry) <Aristeo Felton APRN - Last Filed: 12/09/24 12:55> Allergies/Adverse Reactions: Allergies Allergy/AdvReac Type Severity Reaction Status Date / Time Sulfa (Sulfonamide Allergy Mild hives Verified 07/09/24 07:44 Antibiotics) <Aristeo Felton APRN - Last Filed: 12/09/24 12:55> FOR[facility]LY [facility] Past Medical History Medical History: Medical History Limited range of motion of shoulder Shoulder pain Numbness and tingling in right hand Elbow pain Chronic pain of both hips Left shoulder pain Sinusitis Right acute otitis media Preop cardiovascular exam Acute hemorrhoid Pain of left clavicle Normal urinalysis Abdominal discomfort Burning with urination UTI (urinary tract infection) Frequent headaches Snoring Sensation of plugged ear on left side Skin lesion Excessive cerumen in ear canal Acute pain of both hips Osteopenia determined by x-ray Compression fracture of body of thoracic vertebra GERD (gastroesophageal reflux disease) (~07/2019) Suprapubic pain Essential (primary) hypertension Mixed hyperlipidemia <Aristeo Felton APRN - Last Filed: 12/09/24 12:55> Surgical History Surgical History: Surgical History History of lumpectomy History of myomectomy Hx of laparoscopy <Aristeo Felton APRN - Last Filed: 12/09/24 12:55> Family History Family History: Family History Father Hypertension Family history of elevated blood lipids Family history of cardiovascular disease Heart disease Acute myocardial infarction H/O heart bypass surgery Grandparent Hypertension Family history of lung cancer Family history of primary malignant neoplasm of liver Family history of malignant neoplasm of uterus Mother Hypertension Kidney stones Sibling Tobacco abuse Hypertension Other Cerebrovascular accident Diabetes mellitus Family history of arthritis Family history of malignant neoplasm Family history of malignant neoplasm of bone Family history of malignant neoplasm of breast Family history of pancreatic cancer <Aristeo Felton APRN - Last Filed: 12/09/24 12:55> Social History Social History: Social History Social History: recently diagnosed with Osteopenia. 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 Head: atraumatic. EYES: EOMI, NOSE: Atraumatic NECK: Trachea midline RESPIRATORY: No increased rate of breathing clear to auscultation CARDIOVASCULAR: RRR, no peripheral edema ABDOMINAL: Non-distended soft nontender no guarding rebound MUSCULOSKELETAl: No obvious deformities NEURO: Alert. Moving 4/4 extremities SKIN:: Warm, dry. Normal color PSYCHIATRIC: Normal affect <Zaire Harper MD - Last Filed: 12/09/24 16:38> Course Vital Signs Vital signs: Vital Signs Temperature 97.6 F 12/09/24 12:53 Pulse Rate 82 12/09/24 12:53 Respiratory Rate 16 12/09/24 12:53 Blood Pressure 138/93 H 12/09/24 12:53 Pulse Oximetry 98 12/09/24 12:53 Oxygen Delivery Room Air 12/09/24 12:53 Temperature 98.0 F 12/09/24 14:02 Pulse Rate 86 12/09/24 14:02 Respiratory Rate 18 12/09/24 14:02 Blood Pressure 131/86 12/09/24 14:02 Pulse Oximetry 97 12/09/24 14:02 Oxygen Delivery Room Air 12/09/24 14:02 <Aristeo Felton APRN - Last Filed: 12/09/24 12:55> Vital Signs Temperature 97.6 F 12/09/24 12:53 Pulse Rate 82 12/09/24 12:53 Respiratory Rate 16 12/09/24 12:53 Blood Pressure 138/93 H 12/09/24 12:53 Pulse Oximetry 98 12/09/24 12:53 Oxygen Delivery Room Air 12/09/24 12:53 Temperature 98.0 F 12/09/24 14:02 Pulse Rate 86 12/09/24 14:02 Respiratory Rate 18 12/09/24 14:02 Blood Pressure 131/86 12/09/24 14:02 Pulse Oximetry 97 12/09/24 14:02 Oxygen Delivery Room Air 12/09/24 14:02 <Zaire Harper MD - Last Filed: 12/09/24 16:38> MDM - Chest Pain MDM Narrative Medical decision making narrative: -Course: 49-year-old female presenting with chest tightness. Symptoms have since resolved. 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 Patient's EKGs and labs are reviewed without significant high risk changes. Cardiac risk factors reviewed. Heart score is <4 and it iss reasonable for further risk stratification to be performed as outpatient. Pain was not sudden or maximal onset not tearing or ripping quality. No other signs or symptoms suggest aortic dissection. A low risk Wells criteria is noted. PE is felt to be unlikely. No pneumonia seen on evaluation today. Patient is felt to be reasonable candidate for continued evaluation as an outpatient. -DDX includes but is not limited to: Anxiety, ACS PE pneumothorax dissection <Zaire Harper MD - Last Filed: 12/09/24 16:38> Lab Data Result diagrams: 12/09/24 12:52 12/09/24 12:52 <Aristeo Felton APRN - Last Filed: 12/09/24 12:55> Labs: Lab Results 12/09/24 12/09/24 Range/Units 12:52 15:36 WBC 6.0 (4.5-10.0) K/mm3 RBC 4.49 (4.2-5.4) M/mm3 Hgb 12.7 (12.0-15.0) g/dL Hct 39.5 (37.0-47.0) % MCV 88.0 (80-100) fl MCH 28.3 (26-34) pg MCHC 32.2 (32-36) g/dl RDW 12.9 (11.5-14.5) % Plt Count 316 (150-375) k/mm3 MPV 8.7 (7.4-10.4) fl Immature Gran % (Auto) 0.2 (0-0.5) % Neut % (Auto) 55.8 (45.5-73.1) % Lymph % (Auto) 35.9 (18.3-44.2) % [place] % (Auto) 6.3 (2.6-8.5) % Eos % (Auto) 1.3 (0-4.4) % Baso % (Auto) 0.5 (0.2-1.2) % Lymph # (Auto) 2.17 (0.9-3.2) K/mm3 [place] # (Auto) 0.4 (0.1-0.6) K/mm3 Eos # (Auto) 0.1 (0-0.3) K/mm3 Baso # (Auto) 0.0 (0.0-0.1) K/mm3 Abs Immat Gran (auto) 0.01 (0.00-0.031) K/mm3 Absolute Neuts (auto) 3.4 (1.3-6.7) K/mm3 Absolute Nucleated RBC 0.000 (0.0-0.012) K/mm3 Nucleated RBC % 0.0 (0.0-0.2) % PT 13.4 (11.1-14.7) Seconds INR 1.0 APTT 28.2 (22.3-36.8) Seconds Sodium 137 (137-145) mmol/L Potassium 3.8 (3.4-5.0) mmol/L Chloride 100 (98-107) mmol/L Carbon Dioxide 30 (22-30) mmol/L Anion Gap 7 (4-12) mmol/L BUN 20 H (7-17) mg/dL Creatinine 0.76 (0.7-1.0) mg/dL Estim Creat Clear Calc 75 ml/min Estimated GFR > 60 (59 - ) Glucose 119 H (65-110) mg/dL Calcium 9.5 (8.4-10.2) mg/dL Total Bilirubin 0.4 (0.2-1.3) mg/dL AST 34 (14-36) U/L ALT 21 (6-35) U/L Alkaline Phosphatase 74 (38-126) U/L Troponin I < 0.012 < 0.012 (0.000-0.034) ng/mL Total Protein 7.6 (6.3-8.2) g/dL Albumin 4.3 (3.5-5.1) g/dL Lipase 103 (23-300) U/L <Aristeo Felton, INFORMATION WRITER - Last Filed: 12/09/24 12:55> Lab Results 12/09/24 12/09/24 Range/Units 12:52 15:36 WBC 6.0 (4.5-10.0) K/mm3 RBC 4.49 (4.2-5.4) M/mm3 Hgb 12.7 (12.0-15.0) g/dL Hct 39.5 (37.0-47.0) % MCV 88.0 (80-100) fl MCH 28.3 (26-34) pg MCHC 32.2 (32-36) g/dl RDW 12.9 (11.5-14.5) % Plt Count 316 (150-375) k/mm3 MPV 8.7 (7.4-10.4) fl Immature Gran % (Auto) 0.2 (0-0.5) % Neut % (Auto) 55.8 (45.5-73.1) % Lymph % (Auto) 35.9 (18.3-44.2) % [place] % (Auto) 6.3 (2.6-8.5) % Eos % (Auto) 1.3 (0-4.4) % Baso % (Auto) 0.5 (0.2-1.2) % Lymph # (Auto) 2.17 (0.9-3.2) K/mm3 [place] # (Auto) 0.4 (0.1-0.6) K/mm3 Eos # (Auto) 0.1 (0-0.3) K/mm3 Baso # (Auto) 0.0 (0.0-0.1) K/mm3 Abs Immat Gran (auto) 0.01 (0.00-0.031) K/mm3 Absolute Neuts (auto) 3.4 (1.3-6.7) K/mm3 Absolute Nucleated RBC 0.000 (0.0-0.012) K/mm3 Nucleated RBC % 0.0 (0.0-0.2) % PT 13.4 (11.1-14.7) Seconds INR 1.0 APTT 28.2 (22.3-36.8) Seconds Sodium 137 (137-145) mmol/L Potassium 3.8 (3.4-5.0) mmol/L Chloride 100 (98-107) mmol/L Carbon Dioxide 30 (22-30) mmol/L Anion Gap 7 (4-12) mmol/L BUN 20 H (7-17) mg/dL Creatinine 0.76 (0.7-1.0) mg/dL Estim Creat Clear Calc 75 ml/min Estimated GFR > 60 (59 - ) Glucose 119 H (65-110) mg/dL Calcium 9.5 (8.4-10.2) mg/dL Total Bilirubin 0.4 (0.2-1.3) mg/dL AST 34 (14-36) U/L ALT 21 (6-35) U/L Alkaline Phosphatase 74 (38-126) U/L Troponin I < 0.012 < 0.012 (0.000-0.034) ng/mL Total Protein 7.6 (6.3-8.2) g/dL Albumin 4.3 (3.5-5.1) g/dL Lipase 103 (23-300) U/L <Zaire Harper MD - Last Filed: 12/09/24 16:38> Discharge Plan Discharge Clinical Impression: Atypical chest pain <Aristeo Felton APRN - Last Filed: 12/09/24 12:55> Patient Disposition: Home <Aristeo Felton APRN - Last Filed: 12/09/24 12:55> Condition: Stable <Aristeo Felton APRN - Last Filed: 12/09/24 12:55> Instructions: Antibiotic Form, Chest Pain (DC) <Aristeo Felton APRN - Last Filed: 12/09/24 12:55> Additional Instructions: Please follow-up with your primary care physician and your nut grader in 5-7 days. If you develop any new or worsening symptoms please return to ED for re-evaluation. <Aristeo eFlton APRN - Last Filed: 12/09/24 12:55> Patient Language: Tunisian <Aristeo Felton APRN - Last Filed: 12/09/24 12:55> Prescriptions: No Action meloxicam 7.5 mg tablet 7.5 mg PO DAILY Qty: 30 6RF Women's Multivitamin 18 mg iron-400 mcg-500 mg Tablet 1 tablet PO DAILY epinephrine [EpiPen 2-Terry] 0.3 mg/0.3 mL auto-injector 0.3 mg IM ONCE PRN (Reason: Allergic Reaction) Rx Instructions: as a single dose; may repeat once amlodipine 5 mg tablet See Rx Instructions .ROUTE .COMPLEX Qty: 90 2RF Dose Instruction: TAKE 1 TABLET DAILY Rx Instructions: TAKE 1 TABLET DAILY atorvastatin 10 mg tablet See Rx Instructions .ROUTE .COMPLEX Qty: 90 1RF Dose Instruction: TAKE 1 TABLET BY MOUTH EVERY DAY Rx Instructions: TAKE 2 TABLETS BY MOUTH EVERY DAY <Aristeo Felton APRN - Last Filed: 12/09/24 12:55> Follow-up/Referrals: Ciro Dennis MD [Primary Care Provider] - <Aristeo Felton APRN - Last Filed: 12/09/24 12:55>
--- OUTSIDE RECORDS SUMMARY | 2024-12-09 12:47 | XMS_ITS | Encounter Summary ---
Author Organization [facility] Address [address] [place] [address] Phone Care Team Providers Care Manager Biostatistics Name Role Phone Ciro Dennis MD Primary Care Provider Encounter Details Date Type Department Care Team (Late st Contact Info) Description 02/21/2020 Orders Only [facility] Scanning, Provider Social History Tobacco Use Types Packs/Day Years Used Date Smoking Tobacco: Never Assessed Comments Unknown Sex and Gender Information Value Date Recorded Sex Assigned at Not on file Legal Sex Female 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 Gender Identity Not on file Sexual Orientation Not on file documented as of this encounter Plan of Treatment Not on file documented as of this encounter Procedures Procedure Name Priority Date/Time Associated Diagnosis Comments SCAN - RADIOLOGY/IMAGING 02/21/2020 documented in this encounter Results * SCAN - RADIOLOGY/IMAGING (02/21/2020) Anatomical Region Laterality Modality Other us Provider Scanning Final Result documented in this encounter Visit Diagnoses Not on filedocumented in this encounter Care Teams Manager Biostatistics Relationship Specialty Start Date End Date Ciro Dennis MD PCP - General Family Medicine 09/26/20 documented as of this encounter
--- OUTSIDE RECORDS SUMMARY | 2024-12-09 12:47 | XMS_ITS | Clinical Summary ---
Author Organization [facility] Address [address] [place] [address] Care Team Providers Care Broke Handler Name Role Phone Ciro Dennis MD Primary Care Provider [phone] Source Comments [facility] and [facility]ician Practices is amultiple site organization consisting of ambulatory clinics and hospital sitesin [place], [place], [place] and [place]. This disclosure is being madepursuant to the Care Everywhere program and may not contain all information available regarding this patient. Last updated 18.[facility] Allergies Active Allergy Reactions Criticality Noted Date Comments Sulfa Drugs Urticaria Medium 11/06/2017 Medications * Be aware that medications may not be up to date on this document. Alwaysverify current medications with the patient. atorvastatin (LIPITOR) 10 MG tablet Take 10 mg by mouth at bedtime Active amLODIPine (NORVASC) 2.5 MG tablet Take 2.5 mg by mouth once daily Active Social History Tobacco Use Types Packs/Day Years Used Date Smoking Tobacco: Never Smokeless Tobacco: Never Alcohol Use Standard Drinks/Week Comments Yes 0 (1 standard drink = 0.6 oz pur e alcohol) soc Comments No Sex and Gender Information Value Date Recorded Sex Assigned at Not on file Legal Sex Female 2:47 PM CDT Gender Identity Not on file Sexual Orientation Not on file Last Filed Vital Signs Vital Sign Reading Time Taken Comments Blood Pressure 143/96 11/06/2017 3:54 PM CDT Pulse 62 11/06/2017 3:56 PM CDT Temperature 37.2 C (98.9 F) 11/06/2017 4:05 PM CDT Respiratory Rate 13 11/06/2017 3:56 PM CDT Oxygen Saturation 100% 11/06/2017 3:56 PM CDT Inhaled Oxygen Concentration - - Weight - - Height - - Body Mass Index - - Plan of Treatment Health Maintenance Due Date Last Done Comments COLOGUARD (AGES 45-75) - COL ON CA SCREENING 1973 COLON MONITORING 1973 COLONOSCOPY - COLON CA SCREENING 1973 CT COLONOGRAPHY - COLON CA SCREENING 1973 Colorectal Cancer Screening 1973 FIT - COLON CA SCREENING 1973 FLEX SIG - COLON CA SCREENING 1973 MAMMOGRAM 1973 HIV SCREENING 1988 HEPATITIS C SCREENING 02/26/1991 DTAP/TDAP/TD VACCINES (1 - Tdap) 1992 HEPATITIS B VACCINE (1 of 3 - 19+ 3-dose series) 1992 PAP SMEAR 1994 PNEUMOCOCCAL VACCINE 50+ (1 of 1 - PCV) 2023 ZOSTER VACCINE (1 of 2) 2023 COVID-19 VACCINE (1 - 2023-2 5 season) 2024 DEPRESSION SCREENING 05/06/2024 INFLUENZA VACCINE (#1) 2025 HIB VACCINE Aged Out No longer eligi ble based on patient's age to complete this topic HPV VACCINE Aged Out No longer eligi ble based on patient's age to complete this topic MENINGOCOCCAL (Group B) VACC INE SHARED DECISION-MAKING Aged Out No longer eligibl e based on patient's age to complete this topic MENINGOCOCCAL GROUPS A/C/Y/W VACCINE Aged Out No longer eligible b ased on patient's age to complete this topic Insurance SELF PAY NO INSURANCE Member Subscriber Plan / Payer (Ef fective for All Dates) Name:DemetriopetrosTammy carr Morris Member ID:Not on file Relation to Subscriber:Not on file Name:TAMMY WOLFE Subscriber ID:Not on file (Home) Address: [address] [place] [id number] Payer ID:Not on file Group ID:Not on file Type:Self Pay Address: [place], [place] Care Teams Broke Handler Relationship Specialty Start Date End Date Ciro Dennis MD [address] [place] [address] PCP - General Family Medicine 11/06/17
--- OUTSIDE RECORDS SUMMARY | 2024-12-09 12:47 | XMS_ITS | Clinical Summary ---
Author Organization [employer] [address] [facility] Address [address] [place] [address] Care Team Providers Care Reel Cutter Name Role Phone Ciro Dennis MD Primary Care Provider [phone] Allergies Active Allergy Reactions Criticality Noted Date Comments Sulfa (Sulfonamide Antibiotics) Hives High 05/2019 Medications atorvastatin (LIPITOR) 10 mg tablet Take 10 mg by mouth daily. Active amLODIPine (NORVASC) 2.5 mg tablet Take 5 mg by mouth daily. Active omeprazole (PriLOSEC) 20 mg Capsule, Delayed Release(E.C.) Take 20 mg by mouth 2 times daily. Active estrogens, conjugated (PREMARIN VAGINAL) Insert 30 Grams vaginally every 7 days. 1 application weekly Active cholecalciferol , Vitamin D3, (VITAMIN D3) 25 mcg (1,000 unit) Capsule Take 1,000 Units by mouth daily. Active multivitamin (DAILY-GEORGE) tablet Take 1 Tablet by mouth daily. Active Active Problems Problem Noted Date Diagnosed Date Wedge compression fracture o f T6 vertebra with routine healing 04/05/2020 Closed wedge compression fracture of T8 vertebra 04/05/2020 Social History Tobacco Use Types Packs/Day Years Used Date Smoking Tobacco: Never Smokeless Tobacco: Never Tobacco Cessation:Counseling Given: No Alcohol Use Standard Drinks/Week Comments Yes 0 (1 standard drink = 0.6 oz pur e alcohol) Comments Unknown Sex and Gender Information Value Date Recorded Sex Assigned at Not on file Legal Sex Female 10:50 AM PATTERN CARRIER Gender Identity Not on file Sexual Orientation Not on file Last Filed Vital Signs Vital Sign Reading Time Taken Comments Blood Pressure - - Pulse - - Temperature - - Respiratory Rate - - Oxygen Saturation - - Inhaled Oxygen Concentration - - Weight 63.5 kg (140 lb) 04/05/2020 10:19 AM PATTERN CARRIER Height 158.8 cm (5' 2.5) 04/05/2020 10:19 AM CS T Body Mass Index 25.2 04/05/2020 10:19 AM PATTERN CARRIER Plan of Treatment Health Maintenance Due Date Last Done Comments HEPATITIS B VACCINES (1 of 3 - 19+ 3-dose series) 1992 HPV/Cotest (21-29) 1994 CERVICAL CANCER SCREENING 2003 HPV/Cotest (30-65) 2003 PAP SMEAR 2003 BREAST CANCER SCREENING 2013 DTAP/TDAP/TD VACCINES (2 - Td or Tdap) 09/29/2017 COLORECTAL SCREENING 2018 Colorectal Cancer Screening 2018 FIT-DNA Q 3 years 2018 FIT/FOBT Q 1 year 2018 Flex Sig/CT Colonography Q 5 years 2018 ZOSTER VACCINE (1 of 2) 2023 INFLUENZA VACCINE (#1) 2024 03/12/2014, 2011 Insurance [facility] Care Teams Reel Cutter Relationship Specialty Start Date End Date Ciro Dennis MD [address] [place] [address] PCP - General Family Practice 03/11/20
--- OUTSIDE RECORDS SUMMARY | 2024-12-09 12:47 | XMS_ITS | Clinical Summary ---
Author Organization [facility] [place] [address] Address [address] [place] [address] Care Team Providers Care Draw Frame Runner Name Role Phone Ciro Dennis MD Primary Care Provider [phone] Allergies Active Allergy Reactions Criticality Noted Date Comments Sulfa (Sulfonamide Antibiotics) Hives High 05/2019 Medications amLODIPine (NORVASC) 5 mg tablet 09/20/19 21 Active atorvastatin (LIPITOR) 10 mg tablet Take 1 tablet (10 mg total) by mouth daily Active cholecalciferol (VITAMIN D-3) 1,000 unit capsule Take 3,000 Units by mouth daily Active Premarin vaginal cream INSERT 1 APPLICATORFUL VAGINALLY 3-4 TIMES WEEKLY 07/26/19 21 Active multivitamin tablet Take 1 tablet by mouth daily Active omeprazole (PriLOSEC) 20 mg capsule Take 20 mg by mouth 2 (two) times a day Active miscellaneous medical supply misc Immunity caps zinc 10 mg, Copper 0.4mg, Active pen needle, diabetic (Sure Comfort Pen Needle) 31 gauge x 3/16 needleIndication s:Postmenopausal osteoporosis USE DAILY WITH FORTEO PEN 100 each 3 09/29/19 22 Active Additional Information Patient not taking.Reported on 11/26/2022 pen needle, diabetic (BD Ultra-Fine Mini Pen Needle) 31 gauge x 3/16 needleIndication s:Postmenopausal osteoporosis 1 each daily Use daily with forteo pen 100 each 3 11/28/19 23 Active Additional Information Patient not taking.Reported on 12/30/2023 teriparatide (Forteo) 20 mcg/dose (600mcg/2.4mL) injectionIndicat ions:Postmenopau billy osteoporosis INJECT 0.08 ML (20 MCG) UNDER THE SKIN DAILY. DISCARD 28 DAYS AFTER INITIAL USE 7.199 mL 3 11/29/19 24 Active Additional Information Patient not taking.Reported on 12/30/2023 EPINEPHrine 0.3 mg/0.3 mL auto-injection syringe 08/05/19 24 Active Active Problems Problem Noted Date Diagnosed Date Postmenopausal osteoporosis 09/27/2020 History of vertebral compression fracture 2020 Overview (09/27/2020): T6, T8 on external CT scan Menopausal state 09/27/2020 Surgical History Surgery Date Site/Laterality Comments LAPAROSCOPY MYOMECTOMY ABDOMINAL APPROACH BREAST LUMPECTOMY Right IR ASPIRATION WRIST LEFT APPENDECTOMY Medical History Medical History Date Comments Hypertension Localized osteoporosis of spine Family History Medical History Relation Name Comments Allergy (severe) Father Heart attack Father Heart disease Father Hyperlipidemia Father Hypertension Father Hyperlipidemia Mother Hypertension Mother Osteopenia Mother Cancer Paternal Grandfather Cancer Paternal Grandmother Hip fracture Neg Hx Osteoporosis Neg Hx Relation Name Status Comments Father Mother Paternal Grandfather Paternal Grandmother Social History Tobacco Use Types Packs/Day Years Used Date Smoking Tobacco: Never Smokeless Tobacco: Never Personal Safety Answer Date Recorded Getting School Help Needed Not on file 06/21 Comments Unknown Sex and Gender Information Value Date Recorded Sex Assigned at Not on file Legal Sex Female 8:54 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 Gender Identity Not on file Sexual Orientation Not on file Obstetrics History Last Filed Vital Signs Vital Sign Reading Time Taken Comments Blood Pressure 149/96 02/12/2024 11:35 AM CDT Pulse 77 02/12/2024 11:35 AM CDT Temperature 36.7 C (98 F) 02/12/2024 11:35 AM CDT Respiratory Rate 18 02/12/2024 11:35 AM CDT Oxygen Saturation 100% 02/12/2024 11:35 AM CDT Inhaled Oxygen Concentration - - Weight 74.4 kg (164 lb) 02/12/2024 11:35 AM CDT Height 157.5 cm (5' 2) 02/12/2024 11:35 AM CDT Body Mass Index 30 02/12/2024 11:35 AM CDT Plan of Treatment Health Maintenance Due Date Last Done Comments Cervical Cancer Screening 1973 Colon Cancer Screening-Colonoscopy 1973 Depression Screening 1973 Hepatitis C Screening 1973 Hepatitis B Screening 1991 Regular Well Visit/Exam 18-64 1991 Breast Cancer Screening-Mammogram 07/08/2015 07/07/2014, 07/07/2014 Zoster Vaccine (1 of 2) 2023 Influenza Vaccine (#1) 2025 9, 03/07/2017, 03/19/2016, Additional history exists DTaP/Tdap/Td Vaccine (3 - Td or Tdap) 06/19/2029 06/19/2019, 09/30/2007 Pneumococcal vaccine <65 Aged Out No longer eligible based on patient's age to complete this topic Procedures Procedure Name Priority Date/Time Associated Diagnosis Comments DIAGNOSTIC MAMMOGRAM BILATERAL W SYLVESTER Routine 07/07/2014 5:41 PM FOREST TECHNICIAN from Last 3 Months or Most Recently Relevant to Health Maintenance Results * Diagnostic Mammogram Bilateral W Sylvester (07/07/2014 5:41 PM FOREST TECHNICIAN) Anatomical Region Laterality Modality Breast Bilateral Mammography 07/07/2014 5:41 PM FOREST TECHNICIAN Narrative 07/19/2014 4:33 PM CDT MB Performed by: stoney SCREENING MAMM W SYLVESTER BI Acc#: [id number] Screening Mamm Bi Acc#: [id number] DATE OF EXAM: Jul 07 2014 PLEASE SEEN ADDENDUM BELOW CLINICAL HISTORY: Routine screening. RESULT: Two views of each breast were obtained with bilateral breast tomosynthesis. By report a prior study was performed at [facility] and a release form has been submitted to acquire the prior exam for comparison. The current study demonstrates an extremely dense fibroglandular pattern bilaterally which does diminish the sensitivity of the mammogram for lesion detection. Allowing for that limitation, no suspicious mass is identified. There are benign appearing breast calcifications much more apparent in the left breast than the right. Digital technology was employed plus computer-aided detection software (R2) was utilized in interpretation of these images. This facility utilizes a reminder system to notify patients of yearly mammograms. IMPRESSION: 1. NO DEFINITIVE MAMMOGRAPHIC EVIDENCE OF MALIGNANCY. 2. IF PRIOR STUDIES DO BECOME AVAILABLE, AN ADDENDUM WILL BE ISSUED, OTHERWISE ANNUAL FOLLOW UP WOULD BE RECOMMENDED. BI-RADS CATEGORY 2 - BENIGN ADDENDUM: DR. Dilia YAO/meño 07/07/14 Comparison is now made to outside studies from [facility] dated 09/21/13. An extremely dense fibroglandular pattern is once again observed that does limit mammogram sensitivity for lesion detection. No definitive suspicious mass or microcalcifications are seen however to suggest mammographic evidence of malignancy. Annual follow up is recommended. BI-RADS CATEGORY 2 - BENIGN Interpreting Physician: MORE YAO M.D. Read on: Jul 08 2014 7:30A Transcribed by: meño On: Jul 08 2014 2:46P Approved Electronically by: MORE YAO M.D. on: Jul 19 2014 4:33P Attending: LISA BLANCHARD Requesting: LISA BLANCHARD Requesting Fax: -- Attending Fax: -- Attending ID: Requesting ID: Report To 1 ID: [id number] Report To 1 Name: LISA BLANCHARD Report To 1 FAX: -- NextGen Order #: Procedure Note Provider, MD Gogo - 09/09/2016 MEÑO Performed by: stoney SCREENING MAMM W SYLVESTER BI Acc#: [id number] Screening Mamm Bi Acc#: [id number] DATE OF EXAM: Jul 07 2014 PLEASE SEEN ADDENDUM BELOW CLINICAL HISTORY: Routine screening. RESULT: Two views of each breast were obtained with bilateral breasttomosynthesis. By report a prior study was performed at [facility] and a release form has been submitted to acquire the prior exam forcomparison. The current study demonstrates an extremely densefibroglandular pattern bilaterally which does diminish the sensitivity ofthe mammogram for lesion detection. Allowing for that limitation, nosuspicious mass is identified. There are benign appearing breastcalcifications much more apparent in the left breast than the right.Digital technology was employed plus computer- aided detection software(R2) was utilized in interpretation of these images. This facilityutilizes a reminder system to notify patients of yearly mammograms. IMPRESSION: 1. NO DEFINITIVE MAMMOGRAPHIC EVIDENCE OF MALIGNANCY. 2. IF PRIOR STUDIES DO BECOME AVAILABLE, AN ADDENDUM WILL BE ISSUED,OTHERWISE ANNUAL FOLLOW UP WOULD BE RECOMMENDED. BI-RADS CATEGORY 2 -BENIGN ADDENDUM: DR. Dilia YAO/meño 07/07/14 [facility] An extremely dense fibroglandularpattern is once again observed that does limit mammogram sensitivity forlesion detection. No definitive suspicious mass or microcalcificationsare seen however to suggest mammographic evidence of malignancy. Annualfollow up is recommended. BI-RADS CATEGORY 2 - BENIGN Interpreting Physician: MORE YAO M.D. Read on: Jul 08 2014 7:30A Transcribed by: meño On: Jul 08 2014 2:46P Approved Electronically by: MORE YAO M.D. on: Jul 19 2014 4:33P Attending: LISA BLANCHARD Requesting: LISA BLANCHARD Requesting Fax: -- Attending Fax: -- Attending ID: Requesting ID: Report To 1 ID: [id number] Report To 1 Name: LISA BLANCHARD Report To 1 FAX: -- NextGen Order #: Historical Provider MD ALLEN MAMMO PROCEDURES Leisa l Result from Last 3 Months or Most Recently Relevant to Health Maintenance Insurance [employer] [facility]S [facility] Care Teams Draw Frame Runner Relationship Specialty Start Date End Date Ciro Dennis MD PCP - General Family Medicine 09/26/20
[2024-12-09 12:53] VITALS: BP 138/93; PULSE 82; RESP 16; TEMP 36.4; O2SAT 98
[2024-12-09 13:03] LABS: Hematocrit 39.5 % (37.0-47.0); Hemoglobin 12.7 g/dL (12.0-15.0); Immature Granulocyte Percent A 0.2 % (0-0.5); Lymphocytes Absolute Auto 2.17 K/mm3 (0.9-3.2); Mean Corpuscular HGB Conc 32.2 g/dl (32-36); Mean Corpuscular Hemoglobin 28.3 pg (26-34); Mean Corpuscular Volume 88.0 fl (80-100); Nucleated Red Blood Cells Absolute Auto 0.000 K/mm3 (0.0-0.012); Nucleated Red Blood Cells Perc 0.0 % (0.0-0.2); Platelet Count Result 316 k/mm3 (150-375); Red Blood Count 4.49 M/mm3 (4.2-5.4); White Blood Count 6.0 K/mm3 (4.5-10.0)
[2024-12-09 13:14] LABS: INR 1.0; Partial Thromboplastin Time 28.2 Seconds (22.3-36.8); Prothrombin Time 13.4 Seconds (11.1-14.7)
[2024-12-09 13:19] LABS: Alanine Aminotransferase 21 U/L (6-35); Albumin Level 4.3 g/dL (3.5-5.1); Alkaline Phosphatase 74 U/L (38-126); Anion Gap 7 mmol/L (4-12); Aspartate Amino Transferase 34 U/L (14-36); Bilirubin,Total 0.4 mg/dL (0.2-1.3); Blood Urea Nitrogen 20 mg/dL (7-17); Calcium 9.5 mg/dL (8.4-10.2); Carbon Dioxide 30 mmol/L (22-30); Chloride 100 mmol/L (98-107); Estimated CRCL calculation 75 ml/min; Estimated Glomerular Filt Rate > 60; Glucose 119 mg/dL (65-110); Lipase 103 U/L (23-300); Potassium 3.8 mmol/L (3.4-5.0); Sodium 137 mmol/L (137-145); Total Protein 7.6 g/dL (6.3-8.2)
[2024-12-09 13:29] LABS: Troponin I < 0.012 ng/mL (0.000-0.034)
[2024-12-09 14:02] VITALS: BP 131/86; PULSE 86; RESP 18; TEMP 36.7; O2SAT 97; O2SAT 98
--- OUTSIDE RECORDS SUMMARY | 2024-12-09 14:54 | XMS_ITS | Encounter Summary ---
Author Organization [facility] Address [address] [place] [address] Phone Care Team Providers Care Oyster Culler Name Role Phone Ciro Dennis MD Primary Care Provider [phone] Encounter Details Date Type Department Care Team (Late st Contact Info) Description 02/21/2020 Orders Only [facility] Scanning, Provider Social History Tobacco Use Types Packs/Day Years Used Date Smoking Tobacco: Never Assessed Comments Unknown Sex and Gender Information Value Date Recorded Sex Assigned at Not on file Legal Sex Female 8:54 PM RESOURCE DEVELOPMENT MANAGER Gender Identity Not on file Sexual Orientation [...] on filedocumented in this encounter Care Teams Oyster Culler Relationship Specialty Start Date End Date Ciro Dennis MD PCP - General Family Medicine 09/26/20 documented as of this encounter
--- OUTSIDE RECORDS SUMMARY | 2024-12-09 14:54 | XMS_ITS | Clinical Summary ---
Author Organization [facility] [employer] Address [address] [place] [address] Care Team Providers Care Core Carrier Name Role Phone Ciro Dennis MD Primary Care Provider [phone] Source Comments [facility] [employer],[facility] [facility] and Associated [facility]ician Practices is amultiple site organization consisting of ambulatory clinics and hospital sitesin [place], [place], [place] and [place]. This disclosure is being madepursuant to the Care Everywhere program and may not contain all information available regarding this patient. Last updated 18.[facility] [employer] Allergies Active Allergy Reactions Criticality Noted Date [...] WOLFE Subscriber ID:Not on file (Home) Address: [address] [place] [id number] Payer ID:Not on file Group ID:Not on file Type:Self Pay Address: [place], [place] Care Teams Core Carrier Relationship Specialty Start Date End Date Ciro Dennis MD [address] [place] [address] PCP - General Family Medicine 11/06/17
--- OUTSIDE RECORDS SUMMARY | 2024-12-09 14:54 | XMS_ITS | Clinical Summary ---
Author Organization [employer] [id number] [facility] Address [address] [place] [address] Care Team Providers Care Vp Global Marketing [employer] Name Role Phone Ciro Dennis MD Primary Care Provider Allergies Active Allergy Reactions Criticality Noted Date [...] on file Legal Sex Female 10:50 AM TOBACCO CURER Gender Identity Not on file Sexual Orientation Not on file Last Filed Vital Signs Vital Sign Reading Time Taken Comments Blood Pressure - - Pulse - - Temperature - - Respiratory Rate - - Oxygen Saturation - - Inhaled Oxygen Concentration - - Weight 63.5 kg (140 lb) 04/05/2020 10:19 AM TOBACCO CURER Height 158.8 cm (5' 2.5) 04/05/2020 10:19 AM CS T Body Mass Index 25.2 04/05/2020 10:19 AM TOBACCO CURER Plan of Treatment Health Maintenance Due Date [...] INFLUENZA VACCINE (#1) 2024 03/12/2014, 2011 Insurance [facility] Care Teams Vp Global Marketing [employer] Relationship Specialty Start Date End Date Ciro Dennis MD [address] [place] [address] PCP - General Family Practice 03/11/20
--- OUTSIDE RECORDS SUMMARY | 2024-12-09 14:54 | XMS_ITS | Clinical Summary ---
Author Organization [facility] [address] Address [address] [place] [address] Care Team Providers Care Diamond Driller Name Role Phone Ciro Dennis MD Primary Care Provider [phone] Allergies Active Allergy Reactions Criticality Noted Date [...] on file Legal Sex Female 8:54 PM CRITICAL CARE UNIT MANAGER Gender Identity Not on file Sexual [...] BILATERAL W SYLVESTER Routine 07/07/2014 5:41 PM CRITICAL CARE UNIT MANAGER from Last 3 Months or Most Recently Relevant to Health Maintenance Results * Diagnostic Mammogram Bilateral W Sylvester (07/07/2014 5:41 PM CRITICAL CARE UNIT MANAGER) Anatomical Region Laterality Modality Breast Bilateral Mammography 07/07/2014 5:41 PM CRITICAL CARE UNIT MANAGER Narrative 07/19/2014 4:33 PM CDT MB Performed by: stoney SCREENING MAMM W SYLVESTER BI Acc#: [id number] Screening Mamm Bi Acc#: [id number] DATE OF EXAM: Jul 07 2014 PLEASE SEEN ADDENDUM BELOW CLINICAL HISTORY: Routine screening. RESULT: Two views of each breast were obtained with bilateral breast tomosynthesis. By report a prior study was performed at [facility] and a release form has been submitted [...] is now made to outside studies from [facility] dated 09/21/13. An extremely dense fibroglandular pattern [...] ID: Requesting ID: Report To 1 ID: [id number] Report To 1 Name: LISA BLANCHARD Report To 1 FAX: -- NextGen Order #: Procedure Note Provider, MD Gogo - 09/09/2016 MEÑO Performed by: stoney SCREENING MAMM W SYLVESTER BI Acc#: [id number] Screening Mamm Bi Acc#: [id number] DATE OF EXAM: Jul 07 2014 PLEASE SEEN ADDENDUM BELOW CLINICAL HISTORY: Routine screening. RESULT: Two views of each breast were obtained with bilateral breasttomosynthesis. By report a prior study was performed at [facility] and a release form has been submitted [...] [facility] An extremely dense fibroglandularpattern [...] ID: Requesting ID: Report To 1 ID: [id number] Report To 1 Name: LISA BLANCHARD Report To 1 FAX: -- NextGen Order #: Historical Provider MD ALLEN MAMMO PROCEDURES Leisa l Result from Last 3 Months or Most Recently Relevant to Health Maintenance Insurance [employer] [facility] CLAIMS [facility] Care Teams Diamond Driller Relationship Specialty Start Date End Date Ciro Dennis MD PCP - General Family Medicine 09/26/20
--- NOTE | 2024-12-09 15:33 | ECG_ITS ---
Test Date: 2024-12-09 15:38:39 Measurements Intervals [place] Rate: 70 P: 50 WV: 172 QRS: 66 QRSD: 97 T: 61 QT: 382 QTc: 413 Interpretive Statements SINUS RHYTHM POSSIBLE LEFT ATRIAL ENLARGEMENT BASELINE ARTIFACT- I, III, AVR, AVL, AVF, V1-V6 BORDERLINE ECG Compared to ECG 12/09/2024 12:47:50 NO SIGNIFICANT CHANGE Electronically Signed On 12-09-2024 16:04:45 CDT by Torin Farley D.O.
[2024-12-09 16:12] LABS: Troponin I < 0.012 ng/mL (0.000-0.034)
[2024-12-09 17:09] VITALS: BP 139/93; PULSE 82; RESP 20; O2SAT 98
== END 2024-12-09 17:11 | disposition home or self-care (01) ==
PROVIDERS: Emergency Medicine; Emergency Provider Emergency Medicine; PCP Family Medicine
DX: R07.89 Other chest pain (principal); I10 Essential (primary) hypertension; E78.2 Mixed hyperlipidemia
CPT/HCPCS: 36415; 71046; 80053; 83690; 84484; 85025; 85610; 85730; 93005; 99284

== ENCOUNTER 2024-12-12 10:38 | Emergency (ER) | payer OTHER, SELFPAY ==
--- NOTE | ~2024-12-12 | XR_ITS ---
EXAMINATION: XR ankle LT min 3V DATE: 12/12/2024 10:56 INDICATION: Lateral left ankle pain post fall from treadmill TECHNIQUE: Anteroposterior, oblique, mortise, and lateral views of the left ankle were obtained. COMPARISON: None. FINDINGS: Alignment is normal. No fracture. Joint space at the left ankle, mid and hindfoot are relatively pre served. Mild osteoarthritis at the first metatarsophalangeal joint. No ankle joint effusion. Soft tis angélica swelling about the lateral malleolus extending anterior to the ankle. IMPRESSION: 1. No acute osseous adenopathy. Reviewed, dictated and finalized at location A.
--- NOTE | 2024-12-12 10:46 | ED_ITS ---
HPI - Extremity Injury (Lower) General Chief Complaint: Extremity Injury, Lower Stated Complaint: rolled left ankle Time Seen by Provider: 12/12/24 10:39 patient presents to [facility] with complaints of left ankle pain and swelling that began just prior to arrival at [facility]. Patient reports she had finished her work out on the treadmill was going to step off in twisted this left ankle and fell down also injuring the right lung. Patient reports significantly increased pain to left ankle with movement and weight-bearing. Denies numbness or tingling in foot or toes. Related Data Home Medications ?Medication ?Instructions ?Recorded ?Confirmed ?Last Taken ?Type kppjbijo-svd-baor-FA-Ca carb-vit K 1 tablet PO DAILY 02/05/20 07/09/24 03/19/24 History 18 mg iron-400 mcg-500 mg tablet (Women's Multivitamin) epinephrine 0.3 mg/0.3 mL 0.3 mg IM ONCE PRN Allergic 03/20/24 07/09/24 Unknown History injection, auto-injector (EpiPen Reaction 2-Terry) Allergies Allergy/AdvReac Type Severity Reaction Status Date / Time Sulfa (Sulfonamide Allergy Mild hives Verified 12/12/24 10:41 Antibiotics) Review of Systems Constitutional: Constitutional: Reports as per HPI and Denies weakness Eyes: Eyes: Reports no additional eye complaints ENT: Reports system reviewed and no additional complaints, except as documented Cardiovascular: Cardiovascular: Reports no additional cardiovascular complaints Respiratory: Respiratory: Reports no additional respiratory complaints Gastrointestinal: Gastrointestinal: Reports no additional gastrointestinal complaints Genitourinary: Genitourinary: Reports no additional female genitourinary complaints Musculoskeletal: Musculoskeletal: Reports as per HPI, Reports arthralgias, Reports joint swelling and Denies muscle cramps Integumentary/Breasts: Skin/Breast: Reports as per HPI, Denies pruritus and Denies rash Neurologic: Reports as per HPI, Denies numbness and Denies weakness Psychiatric: Psychiatric: Reports no additional psychiatric complaints Endocrine: Endocrine: Reports no additional endocrine complaints Hematologic/Lymphatic: Hematologic/Lymphatic: Reports no additional hematologic/lymphatic complaints Allergic/Immunologic: Allergic/Immunologic: Reports no additional allergic/immunologic complaints PMFSH Past Medical History Medical History Limited range of motion of shoulder Shoulder pain Numbness and tingling in right hand Elbow pain Chronic pain of both hips Left shoulder pain Sinusitis Right acute otitis media Preop cardiovascular exam Acute hemorrhoid Pain of left clavicle Normal urinalysis Abdominal discomfort Burning with urination UTI (urinary tract infection) Frequent headaches Snoring Sensation of plugged ear on left side Skin lesion Excessive cerumen in ear canal Acute pain of both hips Osteopenia determined by x-ray Compression fracture of body of thoracic vertebra GERD (gastroesophageal reflux disease) (~07/2019) Suprapubic pain Essential (primary) hypertension Mixed hyperlipidemia Surgical History Surgical History History of lumpectomy History of myomectomy Hx of laparoscopy Family History Family History Father Hypertension Family history of elevated blood lipids Family history of cardiovascular disease Heart disease Acute myocardial infarction H/O heart bypass surgery Grandparent Hypertension Family history of lung cancer Family history of primary malignant neoplasm of liver Family history of malignant neoplasm of uterus Mother Hypertension Kidney stones Sibling Tobacco abuse Hypertension Other Cerebrovascular accident Diabetes mellitus Family history of arthritis Family history of malignant neoplasm Family history of malignant neoplasm of bone Family history of malignant neoplasm of breast Family history of pancreatic cancer Social History Social History Social History: recently diagnosed with Osteopenia. 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 Gender identity (if verbalized by the patient): Female Spiritual care concerns: No Agree to blood products: Yes Exam Const: General: healthy appearing and no acute distress Nutritional Appearance: well nourished Orientation/consciousness: patient oriented x3 Limitations: no limitations Resp: Effort & Inspection: normal respiratory effort Auscultation: clear to auscultation bilaterally Cardio: Rate: regular rate Rhythm: regular rhythm Skin: General skin exam: normal color Rashes: no rashes Wounds: no wounds Neuro: General: patient oriented x3 and moves all extremities Speech: normal speech Gait exam (Neuro): gait abnormal ( Limited by pain, using crutches) Extrem: Left lower extremity: ankle Details: abnormal to inspection, tenderness, swelling and abnormal ROM; no warmth, no abrasions, no lacerations, no ecchymosis, no crepitus, no foreign bodies, no penetrating wound and achilles tendon exam normal Psych: Mental Status: mental status grossly normal Affect: normal affect Attitude: cooperative Course Course Level of Care: Express Care Visit Vital Signs Vital signs: Vital Signs Temperature 97.5 F L 12/12/24 10:56 Pulse Rate 79 12/12/24 10:56 Respiratory Rate 16 12/12/24 10:56 Blood Pressure 142/95 H 12/12/24 10:56 Pulse Oximetry 100 12/12/24 10:56 Temperature 97.5 F L 12/12/24 10:56 Pulse Rate 79 12/12/24 10:56 Respiratory Rate 16 12/12/24 10:56 Blood Pressure 142/95 H 12/12/24 10:56 Pulse Oximetry 100 12/12/24 10:56 MDM - Extremity Injury (Lower) MDM Narrative Medical decision making narrative: x-rays ordered. my review shows no fracture. Discharge instructions reviewed with patient, as well as provided in writing per nursing staff. The instructions also include specific and strict return/GO TO THE ER as well as f/u information. All questions have been answered, and the patient deny any further questions with discharge and discharge plan. Differential Diagnosis Differential diagnosis: Likely ankle sprain and strain, puncture wound of foot, fracture of toe and ankle fracture Medical Records Attestation: I reviewed the patient's medical records. Imaging Data Attestation: I personally reviewed and interpreted this imaging study as follows: My impression: No fracture or dislocation noted Radiologist's impression: IMPRESSION: 1. No acute osseous adenopathy. Reviewed, dictated and finalized at location A. Discharge Plan Discharge Clinical Impression: Ankle sprain and strain Patient Disposition: Home Condition: Stable Instructions: Antibiotic Form, Ankle Sprain (ED) Additional Instructions: Xray showed no fracture. Minimize activities that aggravate the condition The RICE protocol. Follow the RICE protocol as soon as possible after your injury: Rest your ankle by not walking on it. Ice should be immediately applied to keep the swelling down. It can be used for 20 to 30 minutes, three or four times daily. Do not apply ice directly to your skin. Compression dressings, bandages or nataliia-wraps will immobilize and support your injured ankle. Elevate your ankle above the level of your heart as often as possible during the first 48 hours. Medication: Nonsteroidal anti-inflammatory drugs (NSAIDs) such as ibuprofen and naproxen can help control pain and swelling. Because they improve function by both reducing swelling and controlling pain, they are a better option for mild sprains than narcotic pain medicines. Please schedule a follow-up visit with your personal physician for further evaluation and treatment within 1week OR If your symptoms persist, change or worsen significantly before you can contact your personal physician then please, without delay, go to the emergency department for further evaluation. Patient Language: Citizen Of [place] Prescriptions: No Action meloxicam 7.5 mg tablet 7.5 mg PO DAILY Qty: 30 6RF Women's Multivitamin 18 mg iron-400 mcg-500 mg Tablet 1 tablet PO DAILY epinephrine [EpiPen 2-Terry] 0.3 mg/0.3 mL auto-injector 0.3 mg IM ONCE PRN (Reason: Allergic Reaction) Rx Instructions: as a single dose; may repeat once amlodipine 5 mg tablet See Rx Instructions .ROUTE .COMPLEX Qty: 90 2RF Dose Instruction: TAKE 1 TABLET DAILY Rx Instructions: TAKE 1 TABLET DAILY atorvastatin 10 mg tablet See Rx Instructions .ROUTE .COMPLEX Qty: 90 1RF Dose Instruction: TAKE 1 TABLET BY MOUTH EVERY DAY Rx Instructions: TAKE 2 TABLETS BY MOUTH EVERY DAY Follow-up/Referrals: Ciro Dennis MD [Primary Care Provider] - Time of Disposition: 11:30
[2024-12-12 10:56] VITALS: BP 142/95; PULSE 79; RESP 16; TEMP 36.4; O2SAT 100
== END 2024-12-12 11:44 | disposition home or self-care (01) ==
PROVIDERS: Emergency Provider Nurse Practitioner Family; PCP Family Medicine
DX: S93.402A Sprain of unspecified ligament of left ankle, initial encounter (principal); S96.912A Strain of unspecified muscle and tendon at ankle and foot level, left foot, initial encounter; W17.89XA Other fall from one level to another, initial encounter; I10 Essential (primary) hypertension; M85.80 Other specified disorders of bone density and structure, unspecified site; K21.9 Gastro-esophageal reflux disease without esophagitis; E78.2 Mixed hyperlipidemia
CPT/HCPCS: 73610; 99213; G0463

== ENCOUNTER 2025-04-09 07:01 | Outpatient (CLI) | payer OTHER, SELFPAY ==
--- NOTE | ~2025-04-09 | MR_ITS ---
EXAMINATION: MR ankle LT wo con DATE: 04/09/2025 07:45 INDICATION: Left ankle sprain TECHNIQUE: Magnetic resonance imaging (MRI) of the left ankle was performed without intravenous contrast. Sequences included sagittal, coronal, and axial proton-density weighted fast spin echo without and with fat saturation. COMPARISON: None. FINDINGS: Medial ankle ligaments: There is thickening and increased signal of the superficial deltoid ligament particularly anteriorly with mild surrounding edema consistent with moderate grade sprain/partial tear. The deep deltoid ligament remains normal. The spring ligament complex is normal. Lateral ankle ligaments: The anterior and posterior inferior tibiofibular ligaments are normal. There is thickening and mild increased signal of the anterior talofibular ligament without surrounding soft tissue edema consistent with mild scarring related to chronic sprain. The calcaneofibular and posterior talofibular ligaments are normal. Tendons: Achilles tendon is normal. The peroneus longus and brevis tendons are normal. The tibialis anterior and extensor hallucis longus and extensor digitorum longus tendons are normal. The tibialis posterior, flexor digitorum longus and flexor hallucis longus tendons are normal. Plantar fascia: Plantar aponeurosis is normal. Bones/other: Bone alignment is normal. There is normal bone marrow signal throughout with no fracture, reactive edema or pathologic marrow replacing process. Mild osteoarthritis at a few of the tarsal metatarsal joints. Fluid: 1. Recent moderate grade sprain/partial tear of the superficial deltoid ligament. 2. Scarring consistent with chronic sprain of the anterior talofibular ligament. IMPRESSION: 1. Reviewed, dictated and finalized at location A. 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
== END 2025-04-09 07:02 | disposition home or self-care (01) ==
LOC: MICIMG 07:03
PROVIDERS: PCP Family Medicine; Visit Provider Podiatrist Foot & Ankle Surgery
DX: S93.422A Sprain of deltoid ligament of left ankle, initial encounter (principal); X58.XXXA Exposure to other specified factors, initial encounter
CPT/HCPCS: 73721

== ENCOUNTER 2025-04-09 13:38 | Emergency (ER) | payer OTHER, SELFPAY ==
--- NOTE | ~2025-04-09 | XR_ITS ---
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 Findings: No acute fracture or malalignment. No significant degenerative changes. Soft tissues unremarkable. Impression: No acute fracture or malalignment. Reviewed, dictated and finalized at location P. ENGRAVER Impression: No acute fracture or malalignment.
[2025-04-09 13:40] VITALS: BP 144/89; PULSE 85; RESP 16; TEMP 36.4; O2SAT 100
--- NOTE | 2025-04-09 14:37 | ED_ITS ---
HPI - General Adult General Chief complaint: Extremity Injury, Lower Stated complaint: fall Time Seen by Provider: 04/09/25 14:14 Source: patient Mode of arrival: ambulatory Limitations: no limitations History of Present Illness HPI narrative: 50 YEARS OLD WHITE FEMALE DROVE HERSELF TO THE EMERGENCY ROOM BECAUSE OF RIGHT KNEE PAIN. 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 DID NOT HAVE ANY COMPLAIN AT THAT TIME 6 HOURS LATER PATIENT STARTED HAVING PAIN AT THE RIGHT KNEE. SHE DENIES ANY HEAD INJURY, NECK INJURY OR BACK INJURY. Related Data Home Medications ?Medication ?Instructions ?Recorded ?Confirmed ?Last Taken ?Type edogabwa-bzg-holt-FA-Ca carb-vit K 1 tablet PO DAILY 1 03/18/25 03/19/24 History 18 mg iron-400 mcg-500 mg tablet (Women's Multivitamin) epinephrine 0.3 mg/0.3 mL 0.3 mg IM ONCE PRN Allergic 03/20/24 03/18/25 Unknown History injection, auto-injector (EpiPen Reaction 2-Terry) Allergies Allergy/AdvReac Type Severity Reaction Status Date / Time Sulfa (Sulfonamide Allergy Mild hives Verified 03/18/25 13:43 Antibiotics) Review of Systems Review of Systems: All systems reviewed & are unremarkable except as noted in HPI and below PMFSH Past Medical History Medical History Limited range of motion of shoulder Shoulder pain Numbness and tingling in right hand Elbow pain Chronic pain of both hips Left shoulder pain Sinusitis Right acute otitis media Preop cardiovascular exam Acute hemorrhoid Pain of left clavicle Normal urinalysis Abdominal discomfort Burning with urination UTI (urinary tract infection) Frequent headaches Snoring Sensation of plugged ear on left side Skin lesion Excessive cerumen in ear canal Acute pain of both hips Osteopenia determined by x-ray Compression fracture of body of thoracic vertebra GERD (gastroesophageal reflux disease) (~07/2019) Suprapubic pain Essential (primary) hypertension Mixed hyperlipidemia Surgical History Surgical History History of lumpectomy History of myomectomy Hx of laparoscopy Family History Family History Father Hypertension Family history of elevated blood lipids Family history of cardiovascular disease Heart disease Acute myocardial infarction H/O heart bypass surgery Grandparent Hypertension Family history of lung cancer Family history of malignant neoplasm of uterus Mother Hypertension Kidney stones Sibling Tobacco abuse Hypertension Other Cerebrovascular accident Diabetes mellitus Family history of arthritis Family history of malignant neoplasm Family history of malignant neoplasm of bone Family history of malignant neoplasm of breast Family history of pancreatic cancer Social History Social History Social History: recently diagnosed with Osteopenia. 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, NO GROSS MOTOR DEFICIT Course Vital Signs Vital signs: Vital Signs Temperature 36.4 C 04/09/25 13:40 Pulse Rate 85 04/09/25 13:40 Respiratory Rate 16 04/09/25 13:40 Blood Pressure 144/89 H 04/09/25 13:40 Pulse Oximetry 100 04/09/25 13:40 Temperature 36.4 C 04/09/25 13:40 Pulse Rate 85 04/09/25 13:40 Respiratory Rate 16 12/05/25 13:40 Blood Pressure 144/89 H 04/09/25 13:40 Pulse Oximetry 100 04/09/25 13:40 [facility] MDM Narrative Medical decision making narrative: PATIENT HAD A FALL, COMPLAINING OF RIGHT KNEE PAIN, X-RAY SHOWED NO ACUTE ABNORMALITY, DIAGNOSIS SPRAIN/STRAIN OF THE RIGHT KNEE, DISCHARGED ON KNEE IMMOBILIZER, AND ANTI-INFLAMMATORY MEDICINE. THE PT WAS DISCHARGED TO HOME.THE PT,S CONDITION UPON DISCHARGE WAS FAIR,EDUCATION WAS PROVIDED TO THE PT IN REFERENCE TO THE FINAL IMPRESSION,DISCHARGE STUDY RESULTS,TREATMENT,PROGNOSIS AND NEED FOR FOLLOW UP . Differential Diagnosis Differential Diagnosis: ABOVE Imaging Data Radiologist's impression: ITS Impressions Knee X-Ray 04/09/25 14:32 Impression: No acute fracture or malalignment. Critical Care Time Critical Care Time Critical Care Time: No Discharge Plan Discharge Clinical Impression: Acute pain of right knee Patient Disposition: Home Condition: Stable Instructions: Knee Pain (ED) Additional Instructions: RETURN IF SYMPTOMS ARE WORSENING , CALL YOUR FAMILY PHYSICIAN FOR APPOINTMENT, TAKE TYLENOL, IBUPROFEN NEEDED FOR ACHES AND PAIN, CONTINUE HOME MEDICATIONS. Patient Language: Citizen Of [place] Prescriptions: No Action meloxicam 15 mg tablet 15 mg PO DAILY Qty: 30 3RF estradiol 0.01 % (0.1 mg/gram) cream 1 g vaginal 2XW Qty: 42.5 5RF Women's Multivitamin 18 mg iron-400 mcg-500 mg Tablet 1 tablet PO DAILY epinephrine [EpiPen 2-Terry] 0.3 mg/0.3 mL auto-injector 0.3 mg IM ONCE PRN (Reason: Allergic Reaction) Rx Instructions: as a single dose; may repeat once amlodipine 5 mg tablet See Rx Instructions .ROUTE .COMPLEX Qty: 90 2RF Dose Instruction: TAKE 1 TABLET DAILY Rx Instructions: TAKE 1 TABLET DAILY atorvastatin 10 mg tablet See Rx Instructions .ROUTE .COMPLEX Qty: 90 1RF Dose Instruction: TAKE 1 TABLET BY MOUTH EVERY DAY Rx Instructions: TAKE 2 TABLETS BY MOUTH EVERY DAY Follow-up/Referrals: Ciro Dennis MD [Primary Care Provider, Family Practice] Stand Alone Forms: Work/School Release IP
== END 2025-04-09 15:08 | disposition home or self-care (01) ==
LOC: ANHED 14:59
PROVIDERS: Emergency Provider Emergency Medicine; PCP Family Medicine
DX: M25.561 Pain in right knee (principal); W11.XXXA Fall on and from ladder, initial encounter; I10 Essential (primary) hypertension; E78.2 Mixed hyperlipidemia
CPT/HCPCS: 73564; 99283